=== PATIENT | female | born 1985 | race Caucasian/White ===

== ENCOUNTER 2020-09-09 15:46 | Emergency (ER) | payer SELFPAY ==
[2020-09-09 15:48] VITALS: BMI 37.1
--- NOTE | 2020-09-09 16:09 | ED_ITS ---
HPI - Back Pain/Injury General: Chief Complaint: Back Pain/Injury Stated Complaint: LOWER BACK PAIN Time Seen by Provider: 09/09/20 15:47 Source: patient Mode of arrival: ambulatory Limitations: no limitations History of Present Illness: HPI Narrative: 34-year-old female comes in today with low back pain. Patient states that yesterday she had sneezed and coughed and with that felt a strain in her back. Patient reports that his progressively worsened throughout the day and night. Patient upon awakening today could barely get up off the toilet. Patient had taken some baclofen and laid down on the floor to counter stretch out her back but was unable to get back up off the floor and called for EMS. Patient was brought into the emergency room. Patient was given 100 mcg of fentanyl with minimal relief for pain. Patient appears well. Patient denies any fever. Patient denies any change in bowel or bladder. MD elicited complaint: back pain Review of Systems General: Reports: 10 or more systems reviewed and unremarkable except in HPI and below Musc: Reports: back pain Physical Exam Const: COMMON NORMALS: no acute distress and patient oriented x3 GENERAL APPEARANCE: cooperative HENMT: COMMON NORMALS: normocephalic and Normal external nose present HEAD & SCALP: normal to inspection and normocephalic NOSE: Normal external nose present MOUTH: Normal oral and palatal mucosa present Eye: GENERAL EYE: appearance normal, both eyes and all related structures Neck/C-Spine: COMMON NORMALS: full ROM Chest: COMMONS NORMALS: normal inspection of the chest Resp: COMMON NORMALS: normal respiratory effort EFFORT & INSPECTION: Yes able to speak in complete sentences Cardio: COMMON NORMALS: regular rate and regular rhythm RATE: regular rate RHYTHM: regular rhythm GI: COMMON NORMALS: non-tender Back/Pelvis: LUMBAR SPINE/LOWER BACK: Yes paraspinal muscle tenderness Extremity: COMMON NORMALS: normal to inspection Neuro: COMMON NORMALS: patient oriented x3 and moves all extremities Psych: COMMON NORMALS: mental status grossly normal and cooperative Skin: COMMON NORMALS: no rashes or lesions noted GENERAL SKIN EXAM: no rashes or lesions noted MDM - Back Pain/Injury MDM Narrative: Medical decision making narrative: Patient comes in today with complaints of low back pain after straining yesterday. Patient reports worsening low back pain. Skin was warm and dry. Respirations were even lungs were clear to auscultation. Patient had muscle spasms in the low back. Patient has some tenderness of the vertebra along L5-S1. Differential diagnosis includes but not limited to lumbar strain, intervertebral disc disease, facet arthropathy. Patient had no signs of cauda equina. Patient denied any problems with bowel or bladder habits. Patient had no fever. Reviewed exam with patient with recommendations for treatment and follow-up. Patient reported understanding. Discharge Plan Discharge Patient Disposition: Home Clinical Impression: Strain of lumbar region Qualifiers: Encounter type: initial encounter Qualified Code(s): S39.012A - Strain of muscle, fascia and tendon of lower back, initial encounter Condition: Stable Prescriptions: New naproxen 500 mg tablet 500 mg PO BID Qty: 20 RF: 0 tizanidine 4 mg tablet 4 mg PO Q6H PRN (Reason: muscle spasticity) Qty: 20 RF: 0 [place] 5-325 mg tablet 1 tab PO Q6H PRN (Reason: pain) Qty: 10 RF: 0 Discharge Orders: Discharge ED (Routine); Ordered 09/09/20 Ordered By: Pancho Burden Referrals: Paola Rogers FNP [Referring] - Discharge Diet: Usual diet Discharge Activity: Increase activity as tolerated Patient Instructions: Low Back Strain (ED) Activity Restrictions/Additional Instructions: Activity as tolerated. Follow-up with primary care for further treatment. 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
[2020-09-09] MEDS: ketorolac 30 mg/mL INJ 15 MG IVP (16:27)
[2020-09-09] MEDS: orphenadrine 30 mg/mL Inj 2 mL 60 MG IVP (16:27)
[2020-09-09] MEDS: dexamethasone 4 mg/mL INJ 8 MG IVP (16:30)
[2020-09-09] MEDS: morphine 4 mg/mL SDV 1 mL IM (16:58)
[2020-09-09] MEDS: morphine 4 mg/mL SDV 1 mL IVP (18:18)
[2020-09-09 18:23] VITALS: BP 130/90; PULSE 109; RESP 14; O2SAT 96
== END 2020-09-09 18:24 | disposition home or self-care (01) ==
LOC: ER 16:47
PROVIDERS: Emergency Provider Nurse Practitioner Family
DX: S39.012A Strain of muscle, fascia and tendon of lower back, initial encounter (principal); X50.9XXA Other and unspecified overexertion or strenuous movements or postures, initial encounter
CPT/HCPCS: 12345; 96372; 96374; 96375; 99282; 99283; J1100; J1885; J2270; J2360

== ENCOUNTER 2022-05-10 13:36 | Emergency (ER) | payer SELFPAY ==
[2022-05-10 13:42] VITALS: BMI 38.7
--- NOTE | 2022-05-10 13:53 | ED_ITS ---
HPI - Back Pain/Injury General: Chief Complaint: Back Pain/Injury Stated Complaint: Back pain at the gym Time Seen by Provider: 05/10/22 13:48 Source: patient Mode of arrival: ambulatory Limitations: no limitations History of Present Illness: Patient is a 36-year-old female who presents to ED today with a complaint of lower back pain that began immediately after she was at the gym lifting. She states pain is across to her lower back and radiates around into her hips and abdomen. She states pain is not radiating into her legs. States she has a history of previous back pains and had a similar inc ident about a year ago. She has not had any episodes of bowel incontinence. No obvious urinary retention but again symptoms just started 1-2 hours ago. MD elicited complaint: back pain Pertinent past history: prior back pain Onset (ago): hour(s) Timing: constant Severity: severe Pain scale (0-10): 10 Similar Symptoms Previously: Yes Quality: burning Location: lumbar spine, right lower back and left lower back Radiation: abdomen Exacerbating factors: movement, walking and lifting Relieving factors: none Context: while lifting Associated symptoms: Deny abdominal pain, chills, dysuria, fatigue, fever(s) or hematuria Work related injury: No Review of Systems Const: Denies: fever(s), chills, body aches, fatigue or malaise Card: Denies: chest pain Resp: Denies: dyspnea GI: Denies: abdominal pain : Denies: flank pain, dysuria or hematuria Musc: Reports: back pain; Denies: neck pain, extremity pain, extremity swelling, joint pain, joint swelling, joint redness or joint warmth Skin/Breast: Denies: rash Neuro: Denies: headache(s), numbness in extremities, weakness in extremities or sensory changes Physical Exam Const: COMMON NORMALS: patient oriented x3, no limitations and alert GENERAL APPEARANCE: cooperative and in distress (pt appears extremity uncomfortable secondary to pain) NUTRITIONAL APPEARANCE: overweight ADAM ENTATION/CONSCIOUSNESS: Yes awake, Yes oriented to person, Yes oriented to place and Yes oriented to time Resp: COMMON NORMALS: normal respiratory effort and clear to auscultation bilaterally AUSCULTATION: clear to auscultation bilaterally Cardio: COMMON NORMALS: regular rate and regular rhythm RATE: regular rate RHYTHM: regular rhythm GI: COMMON NORMALS: Normal to inspection, nondistended, normoactive bowel sounds present, Soft to palpation, non-tender, No hepatosplenomegaly present and no masses PALPATION: Yes Soft to palpation and Yes No hepatosplenomegaly present Back/Pelvis: THORACIC SPINE/UPPER BACK: Yes normal to inspection, No thoracic spinal tenderness, No paraspinal muscle tenderness and No paraspinal muscle spasm LUMBAR SPINE/LOWER BACK: Yes ROM limited, Yes pain with ROM, Yes lumbar spinal tenderness, Yes paraspinal muscle tenderness, No paraspinal muscle spasm, Yes straight leg raise positive right and Yes straight leg raise positive left PELVIS: Yes buttocks normal SACRUM: no tenderness COCCYX: no tenderness Extremity: COMMON NORMALS: normal to inspection, capillary refill normal, no clubbing, cyanosis or edema, no calf tenderness and no pedal edema GENERAL: Yes normal exam except as noted Neuro: COMMON NORMALS: patient oriented x3, moves all extremities, no focal motor deficits and no sensory deficits noted SENSORIUM/ORIENTATION: Yes alert, Yes oriented to person, Yes oriented to place and Yes oriented to time MOTOR EXAM: 5/5 motor strength present throughout Skin: COMMON NORMALS: no rashes or lesions noted GENERAL SKIN EXAM: no rashes or lesions noted Course Vital Signs: Vital signs: Vital Signs Respiratory Rate 18 05/10/22 15:49 Pulse Oximetry 98 05/10/22 15:49 MDM - Back Pain/Injury Medical Decision Making Patient has no acute neurologic deficits on her physical exam. Pain began immediately after lifting 25 pounds while at the gym. I do not see any indication for emergent imaging at this time as it is unlikely to change overall management. Pain was incredibly difficult to treat here but eventually patient was able to get out of the wheelchair and ambulate with the help of a walker. She feels comfortable going home at this time. Recommend follow up with PCP within a week for re-evaluation. Discharge Plan Discharge Patient Disposition: Home Clinical Impression: Strain of lumbar region Condition: Stable Prescriptions: New hydrocodone-acetaminophen 5-325 mg tablet 1 tab PO Q6H PRN (Reason: pain) Qty: 14 0RF ibuprofen 800 mg tablet 800 mg PO Q8H PRN (Reason: pain) Qty: 20 0RF methocarbamol 500 mg tablet 1,000 mg PO Q8H Qty: 30 0RF prednisone 10 mg tablet 60 mg PO DAILY 5 Days Qty: 30 0RF Discharge Orders: Discharge ED (Routine); Ordered 05/10/22 Ordered By: Palma García Patient Instructions: Low Back Strain (ED), Acute Low Back Pain (ED), Lumbar Radiculopathy (ED), Opioid Safety Coding Level of Care Code ED Rn Case Manager [facility] Exam Comprehensive
[2022-05-10] MEDS: orphenadrine 30 mg/mL Inj 2 mL 60 MG IV (14:22)
[2022-05-10] MEDS: dexamethasone 10 mg/mL INJ 8 MG IVP (14:22)
[2022-05-10] MEDS: ketorolac 60 mg/2 mL INJ 30 MG IVP (14:22)
[2022-05-10 14:23] VITALS: RESP 24; O2SAT 100
[2022-05-10] MEDS: morphine 4 mg/mL SDV 1 mL IVP (14:23)
[2022-05-10 14:55] VITALS: RESP 18; O2SAT 100
[2022-05-10] MEDS: HYDROmorphone 1 mg/mL INJ 1 mL 0.5 MG IVP (14:55)
[2022-05-10 15:49] VITALS: RESP 18; O2SAT 98
[2022-05-10] MEDS: fentaNYL 50 mcg/mL INJ 2mL IVP ×2 (15:49→16:31)
[2022-05-10 16:31] VITALS: RESP 18; O2SAT 98
== END 2022-05-10 16:50 | disposition home or self-care (01) ==
PROVIDERS: Emergency Provider Physician Assistant
DX: S39.012A Strain of muscle, fascia and tendon of lower back, initial encounter (principal); X50.0XXA Overexertion from strenuous movement or load, initial encounter
CPT/HCPCS: 96374; 96375; 96376; 99284; J1100; J1170; J1885; J2270; J2360; J3010

== ENCOUNTER 2022-05-18 14:05 | Outpatient (CLI) | payer OTHER, SELFPAY ==
--- NOTE | 2022-05-18 14:44 | XRR_ITS ---
PROCEDURE INFORMATION: Exam: XR Lumbosacral Spine Exam date and time: 05/18/2022 3:02 PM Age: 36 years old Clinical indication: Pain and injury or trauma; Sprain or strain, lumbar ligaments; Low back pain; Patient HX: Low back injury while at the gym doing squats with kettlebell. Pain radiates anterior bi-lat femurs, burning sensation; Additional info: Lumbar strain, sequela/lumbar pain w/radiation down R leg TECHNIQUE: Imaging protocol: Radiologic exam of the lumbosacral spine. Views: 3 views. Other technique: AP, lateral and spot lateral views of the lumbar spine are submitted. COMPARISON: CT abdomen pelvis w con* [id number] 09/08/2018 11:25 AM FINDINGS: Bones/joints: Moderate posterior L5-S1 disc height loss redemonstrated. No fracture. No malalignment. Soft tissues: Unremarkable. XR/XR lumbar spine 2-3V* [id number] IMPRESSION: 1. Degenerative changes as above. 2. No acute lumbar spinal bony injury identified.
== END 2022-05-18 14:06 | disposition home or self-care (01) ==
LOC: RAD 14:10
PROVIDERS: Visit Provider Registered Nurse
DX: S39.012A Strain of muscle, fascia and tendon of lower back, initial encounter (principal); X58.XXXA Exposure to other specified factors, initial encounter
CPT/HCPCS: 72100

== ENCOUNTER → 2022-11-09 09:48 | Outpatient (BNVA) | payer OTHER, SELFPAY | PROVIDERS: PCP Registered Nurse; Visit Provider Family Medicine | DX: Z34.90 Encounter for supervision of normal pregnancy, unspecified, unspecified trimester (principal); Z20.828 Contact with and (suspected) exposure to other viral communicable diseases; Z34.80 Encounter for supervision of other normal pregnancy, unspecified trimester; F41.9 Anxiety disorder, unspecified; R30.0 Dysuria | CPT/HCPCS: 80307; 81000; 81025; 84144; 84443; 84702; 85025; 86592; 86695; 86696; 86762; 86803; 86850; 86900; 87077; 87086; 87184; 87340; 87491; 87591; 87624; 87806 ==

== ENCOUNTER 2022-12-07 12:34 | Outpatient (CLI) | payer OTHER, SELFPAY ==
--- NOTE | 2022-12-07 12:50 | US_ITS ---
WS: [id number] EARLY OBSTETRICAL ULTRASOUND (<14 WEEKS). HISTORY: Dating US - Unsure LMP COMPARISON: None available. Single intrauterine gestational sac is identified. Cardiac activity at 180 BPM. [place]-rump length julia sures 4.2 cm which corresponds to a gestation of 11w0d. Normal-appearing yolk sac and amnion demonstr ated. Small subchorionic hemorrhage. Small subchorionic hemorrhage measures 1.6 x 0.8 x 1.7 cm along the RIGHT gestational sac. No free fluid. Coarsened luteum cyst RIGHT ovary. US/US OB <= 14 weeks fetus [id number] IMPRESSION: 1. Single intrauterine gestation of 11 weeks 0 days and EDC of 06/28/2023. 2. Normal cardiac activity. 3. Very small subchorionic hemorrhage.
== END 2022-12-07 12:35 | disposition home or self-care (01) ==
PROVIDERS: PCP Registered Nurse; Visit Provider Family Medicine
DX: Z36.87 Encounter for antenatal screening for uncertain dates (principal); Z3A.11 11 weeks gestation of pregnancy; O46.91 Antepartum hemorrhage, unspecified, first trimester
CPT/HCPCS: 76801; 80307; 81000; 81025; 84144; 84443; 84702; 85025; 86592; 86695; 86696; 86762; 86803; 86850; 86900; 87086; 87340; 87491; 87591; 87624; 87806

== ENCOUNTER → 2022-12-08 10:17 | Outpatient (BNVA) | payer OTHER, SELFPAY | PROVIDERS: PCP Registered Nurse; Visit Provider Family Medicine | DX: Z34.80 Encounter for supervision of other normal pregnancy, unspecified trimester (principal); R30.0 Dysuria | CPT/HCPCS: 87086 ==

== ENCOUNTER → 2023-01-13 10:47 | Outpatient (BNVA) | payer OTHER, SELFPAY | PROVIDERS: PCP Registered Nurse; Visit Provider Family Medicine | DX: Z34.80 Encounter for supervision of other normal pregnancy, unspecified trimester (principal) | CPT/HCPCS: 81511 ==

== ENCOUNTER 2023-02-08 13:31 | Outpatient (CLI) | payer OTHER, MEDICAID, SELFPAY ==
--- NOTE | 2023-02-08 14:15 | US_ITS ---
WS: [id number] ULTRASOUND OB COMPLETE TECHNIQUE: Complete ultrasound. CLINICAL INFORMATION: Anatomy US - 4-5 weeks from now COMPARISON: December 07, 2022 FINDINGS: Cervix is long and closed measuring 4.3 cm Single interuterine gestation is identified with vertex presentation. Placenta is anterior. Placenta grade 0. Normal amniotic fluid volume. cardiac activity: 153 BPM. AGA: 19w4d DARIN by ultrasound: 07/01/2023 Based on GA: No Available percentile Estimated weight: 304 g; BDP: 4.4 cm = 19w2d HC: 17.0 cm = 19w4d AC: 14.4 cm = 19w5d FEMUR LENGTH: 3.1 cm = 19w4d Anatomic survey: profile and four-chamber heart views not well visualized Anatomic survey is otherwise normal. Normal stomach. Kidneys and bladder are normal. Normal 3 vessel cord. Normal 3 vessel cord insertion. Normal spine. Intracranial contents are normal. Normal posterio r fossa and cisterna magna. US/US OB >= 14 weeks fetus [id number] IMPRESSION: 1. Single intrauterine with visualized cardiac activity. AGA 19w4d w ith DARIN 07/01/2023. 2. Placenta is anterior fundal. No evidence of abruption or previa. 3. profile and four-chamber heart views not well visualized. Recommend i nterval follow-up for additional attempt. 4. anatomic survey is otherwise normal. 5. Normal amniotic fluid volume.
== END 2023-02-08 13:32 | disposition home or self-care (01) ==
PROVIDERS: PCP Registered Nurse; Visit Provider Family Medicine
DX: Z34.80 Encounter for supervision of other normal pregnancy, unspecified trimester (principal)
CPT/HCPCS: 76805; 81511

== ENCOUNTER 2023-02-25 12:50 | Outpatient (CLI) | payer OTHER, MEDICAID, SELFPAY ==
--- NOTE | 2023-02-25 14:15 | US_ITS ---
WS: [id number] ULTRASOUND OB FOCUSED HISTORY: Follow up on heart and profile. COMPARISON: 02/08/2023 Single intrauterine gestation in cephalic presentation. Normal four-chamber heart. Still limited eval uation of the outflow tracts. Very short segments of the outflow tracts are identified. heart rate at 147 BPM. Nonvisualization of the profile due to position of the fetus. US/US OB limited [id number] IMPRESSION: 1. Normal four-chamber heart. 2. Continued poor visualization of the outflow tracts and nonvisualization of the profile.
== END 2023-02-25 12:51 | disposition home or self-care (01) ==
LOC: RAD 12:53
PROVIDERS: PCP Registered Nurse; Visit Provider Family Medicine
DX: Z34.80 Encounter for supervision of other normal pregnancy, unspecified trimester (principal)
CPT/HCPCS: 76815

== ENCOUNTER 2023-03-16 20:05 | Outpatient (CLI) | payer OTHER, MEDICAID, SELFPAY ==
[2023-03-16] VITALS (17 sets, daily range): BP systolic 126–146; BP diastolic 64–87; PULSE 86–122; RESP 16; O2SAT 86–99
[2023-03-16 22:09] LABS: Basophils % 0.2 %; Eosinophils # 0.1 10^3/uL (0.0-0.8); Eosinophils % 1.1 %; Hematocrit 35.7 % (37.0-47.0); Hemoglobin 11.9 g/dL (11.5-15.3); Lymphocytes # 1.8 10^3/uL (0.8-4.8); Lymphocytes % 18.6 %; Mean Corpuscular HGB Conc 33.3 g/dL (30.0-36.0); Mean Corpuscular Hemoglobin 28.7 pg (28.0-34.0); Mean Corpuscular Volume 86.2 fl (81-99); Mean Platelet Volume 10.8 fL (7.4-10.4); Monocytes # 0.4 10^3/uL (0.2-0.9); Monocytes % 4.6 %; Neutrophils # 7.08 10^3/uL (1.8-7.7); Neutrophils % 75.1 %; Nucleated Red Blood Cells % 0 %; Platelet Count 163 10^3/cmm (130-400); Red Blood Count 4.14 10^6/uL (4.1-5.3); Red Cell Distribution Width 13.5 % (12.1-15.1); White Blood Count 9.4 10^3/uL (4.0-10.0)
[2023-03-16 22:18] LABS: Add Urine Culture? No; Bacteria Urine TRACE /hpf; Bilirubin Urine Neg (Negative); Blood Urine Neg (Negative); Glucose Urine UA Norm (Normal); Ketones Urine Negative (Negative); Leukocyte Esterase Urine Negative (Negative); Mucus Urine 2+ /hpf; Nitrate Urine Negative (Negative); Protein Urine Neg (Negative); Squamous Epithelial Cell Urine 0-4 /hpf (0-5); Urine Appearance Clear (CLEAR); Urine Color Yellow (Yellow); Urobilinogen Urine Neg (Negative); pH Urine 5 (5-7)
[2023-03-16 22:31] LABS: Alanine Aminotransferase 19 U/L (0-33); Albumin Level 3.4 g/dL (3.5-5.2); Alkaline Phosphatase 114 U/L (35-105); Aspartate Amino Transferase 19 U/L (0-32); Blood Urea Nitrogen 9 mg/dL (6-20); Calcium 8.8 mg/dL (8.5-10.5); Carbon Dioxide 23 mmol/L (22-29); Chloride 106 mmol/L (98-107); Glomerular Filtration Rate 113.8 mL/min (90-130); Glucose 94 mg/dL (65-115); Osmolality Calculated 284 mOsm/kg (285-295); Sodium 138 mmol/L (136-145); Total Bilirubin 0.2 mg/dL (0.15-1.2); Total Protein 6.4 g/dL (6.6-8.7); Uric Acid 4.1 mg/dL (2.4-5.7)
[2023-03-16 22:32] LABS: Urine Creatinine 133 mg/dL (28-217); Urine Protein Random 10 mg/dL
[2023-03-16 22:33] LABS: UPRO/UCREAT Ratio 0.08 mg/mg CR
== END 2023-03-16 23:22 | disposition home or self-care (01) ==
LOC: OPOB 20:09 → OBGYN 20:10
PROVIDERS: PCP Registered Nurse; Visit Provider Family Medicine
DX: O26.899 Other specified pregnancy related conditions, unspecified trimester (principal); R53.1 Weakness; Z3A.00 Weeks of gestation of pregnancy not specified; R61 Generalized hyperhidrosis
CPT/HCPCS: 36415; 80053; 81001; 82570; 84156; 84550; 85025; 99211

== ENCOUNTER 2023-03-23 06:25 | Outpatient (CLI) | payer OTHER, MEDICAID, SELFPAY ==
--- NOTE | 2023-03-23 06:00 | USCV_ITS ---
Shazia Andrade Age: 37 Gender: F : 1985 Exam Date: 03/23/2023 06:43 Ordering Phys: Fermín Hernandez MD Technologist: Exam Location: [facility] [place] Indication: mitral regurg BP: 140 / 80 HR: 88 Rhythm: Sinus Technical Quality: Suboptimal MEASUREMENTS (Male / Female) Normal Values 2D ECHO LV Diastolic Diameter PLAX 4.8 cm 4.2 - 5.9 / 3.9 - 5.3 cm LV Systolic Diameter PLAX 2.8 cm IVS Diastolic Thickness 0.8 cm 0.6 - 1.0 / 0.6 - 0.9 cm IVS Systolic Thickness 1.3 cm LVPW Diastolic Thickness 1.4 cm 0.6 - 1.0 / 0.6 - 0.9 cm LVPW Systolic Thickness 1.3 cm LVOT Diameter 2.0 cm LV Ejection Fraction 2D Teich 70.8 % LV Ejection Fraction MOD 2C 56.8 % LV Ejection Fraction 2C AL 58.0 % LA Diameter 4.3 cm IVC Diameter 1.5 cm M-MODE Aortic Annulus Diameter 3.1 cm LA Ao Ratio MM 1.2 MV E Point Septal Separation 1.5 cm DOPPLER AV Peak Velocity 155.0 cm/s LVOT Peak Velocity 84.0 cm/s AV Area Cont Eq vti 1.8 cm squared AV Area Cont Eq pk 1.7 cm squared MV Area PHT 5.0 cm squared Mitral E to A Ratio 1.7 MV E' Velocity 48.0 cm/s Mitral E to MV E' Ratio 5.7 Mitral E to LV E' Lateral Ratio 5.2 Mitral E to LV E' Septal Ratio 6.4 TR Peak Velocity 161.3 cm/s TR Peak Gradient 10.4 mmHg TV Peak E Velocity 104.0 cm/s Right Atrial Pressure 3.0 mmHg Pulmonary Artery Systolic Pressu 13.4 mmHg RV Acceleration Time 0.1 s FINDINGS Left Ventricle Normal left ventricular size, systolic function and wall thickness, with no regional wall motion abnormalities. Normal left ventricular wall thickness. Normal diastolic filling pattern. Left ventricular ejection fraction is estimated at 60 %. Right Ventricle The right ventricle is normal in size and function. Normal right ventricular systolic pressure. Right Atrium The right atrium is normal in size. Left Atrium Mildly increased left atrial size. Mitral Valve Structurally normal mitral valve. Trace mitral valve regurgitation. Aortic Valve Structurally normal aortic valve without significant sclerosis or stenosis. There is no aortic regurgitation. Tricuspid Valve Structurally normal tricuspid valve. Trace tricuspid valve regurgitation. Pulmonic Valve Pulmonic valve not well visualized. Pericardium Normal pericardium without effusion. Aorta Normal ascending aorta dimension. IVC The inferior vena cava appears normal. CONCLUSIONS Normal left ventricular size, systolic function and wall thickness, with no regional wall motion abnormalities. Normal left ventricular wall thickness. Normal diastolic filling pattern. Left ventricular ejection fraction is estimated at 60 %. Mildly increased left atrial size. Structurally normal mitral valve. Trace mitral valve regurgitation. There are no prior echocardiogram studies to compare. Dr. Mahesh Aguirre MD (Electronically Signed) Final Date: 23 March 2023 15:03 S
== END 2023-03-23 06:26 | disposition home or self-care (01) ==
LOC: RAD 06:26
PROVIDERS: PCP Registered Nurse; Visit Provider Family Medicine
DX: I34.0 Nonrheumatic mitral (valve) insufficiency (principal); R42 Dizziness and giddiness
CPT/HCPCS: 93306

== ENCOUNTER → 2023-03-31 15:21 | Outpatient (BNVA) | payer OTHER, MEDICAID, SELFPAY | PROVIDERS: PCP Registered Nurse; Visit Provider Family Medicine | DX: R35.0 Frequency of micturition (principal); Z34.80 Encounter for supervision of other normal pregnancy, unspecified trimester | CPT/HCPCS: 81000; 82950; 87086 ==

== ENCOUNTER 2023-05-02 07:41 | Outpatient (CLI) | payer OTHER, MEDICAID, SELFPAY ==
--- NOTE | 2023-05-02 07:45 | USR_ITS ---
PROCEDURE INFORMATION: Exam: US , Limited Exam date and time: 05/02/2023 7:58 AM Age: 37 years old Clinical indication: Screening exam; Routine US, uterus; Additional info: Cardiac outflow tracts, profile - 2 months from now, schedule 2 months out LABS AND CLINICAL REPORTS: Last menstrual period start date: 09/26/2022 Gestational age (Established): 31 w 1 d Estimated due date (Established): 07/03/2023 TECHNIQUE: Imaging protocol: Real-time ultrasound of the maternal uterus with image documentation. Exam focused on the clinical indication. COMPARISON: OB limited [id number] 02/25/2023 1:28 PM FINDINGS: Gestation: Single live intrauterine gestation. heart rate: 133 bpm. presentation: Cephalic presentation. Placenta: The placenta is anterior grade 1. ANATOMY: upper lip and nose: facial profile is incompletely visualized. Nasal bone is normal. heart four-chamber view, heart size and position: Four-chamber heart is demonstrated. Left-sided cardiac apex. right ventricular outflow tract: Right ventricular outflow tract is visible in the axial plane. left ventricular outflow tract: Left ventricular outflow tract is visible in the sagittal plane and partially visualized in the axial plane. MATERNAL: Cervix: Cervical length measures 3.6 cm. The cervix is closed. Urinary bladder: The maternal bladder is decompressed. / OB limited [id number] IMPRESSION: 1. Single live intrauterine gestation. 2. Normal four-chamber heart with left cardiac apex. 3. Left and right ventricular outflow tracts are visible in separate planes. Relationship of the right to the left ventricular outflow tract is poorly evaluated. Recommend continuous cine images through the heart oriented in the axial and sagittal plane relative to the fetus.
== END 2023-05-02 07:42 | disposition home or self-care (01) ==
PROVIDERS: PCP Registered Nurse; Visit Provider Family Medicine
DX: Z34.80 Encounter for supervision of other normal pregnancy, unspecified trimester (principal)
CPT/HCPCS: 76815

== ENCOUNTER → 2023-05-03 09:33 | Outpatient (BNVA) | payer OTHER, MEDICAID, SELFPAY | PROVIDERS: PCP Registered Nurse; Visit Provider Family Medicine | DX: Z51.81 Encounter for therapeutic drug level monitoring (principal) | CPT/HCPCS: 85025 ==

== ENCOUNTER 2023-05-19 07:47 | Outpatient (CLI) | payer OTHER, MEDICAID, SELFPAY ==
--- NOTE | 2023-05-19 08:15 | US_ITS ---
WS: [id number] ULTRASOUND OB FOCUSED HISTORY: Outflow tracts and profile - next 2 weeks if possible COMPARISON: 05/02/2023 Single intrauterine gestation is identified in breech presentation. Normal amount of amniotic fluid heart rate at 153 BPM. Persistent difficulty obtaining the LEFT ventricular outflow tract. During the examination the atria both appear larger than expected. Pulmonary artery appears slightly larger than expected also. The fe alicia profile is not visualized due to position. IMPRESSION: 1. Continued difficulty evaluating the heart. The atria appear larger than expected. Poor visualizati on of the LVOT. Recommend follow-up maternal- medicine cardiac evaluation. 2. Nonvisualization of the profile.
== END 2023-05-19 07:48 | disposition home or self-care (01) ==
PROVIDERS: PCP Registered Nurse; Visit Provider Family Medicine
DX: Z34.80 Encounter for supervision of other normal pregnancy, unspecified trimester (principal)
CPT/HCPCS: 76815

== ENCOUNTER 2023-05-27 19:56 | Outpatient (CLI) | payer OTHER, MEDICAID, SELFPAY ==
[2023-05-27 19:56] VITALS: RESP 16; BMI 38.0
[2023-05-27 20:03] VITALS: TEMP 36.3
[2023-05-27 20:24] VITALS: BP 142/93; PULSE 84
[2023-05-27 20:57] VITALS: BP 123/85; PULSE 78
[2023-05-27 21:30] VITALS: BP 127/85; PULSE 78
[2023-05-27 21:31] VITALS: BP 127/85; PULSE 78
== END 2023-05-27 21:35 | disposition home or self-care (01) ==
LOC: OPOB 19:57 → OBGYN 19:57
PROVIDERS: PCP Registered Nurse; Visit Provider Family Medicine
DX: O36.8190 Decreased fetal movements, unspecified trimester, not applicable or unspecified (principal); Z3A.00 Weeks of gestation of pregnancy not specified
CPT/HCPCS: 59025; 99211

== ENCOUNTER → 2023-06-06 10:24 | Outpatient (BNVA) | payer OTHER, MEDICAID, SELFPAY | PROVIDERS: PCP Registered Nurse; Visit Provider Family Medicine | DX: Z34.80 Encounter for supervision of other normal pregnancy, unspecified trimester | CPT/HCPCS: 87081 ==

== ENCOUNTER → 2023-06-16 12:56 | Outpatient (BNVA) | payer OTHER, MEDICAID, SELFPAY | PROVIDERS: PCP Registered Nurse; Visit Provider Family Medicine | DX: Z51.81 Encounter for therapeutic drug level monitoring (principal); R03.0 Elevated blood-pressure reading, without diagnosis of hypertension; Z34.80 Encounter for supervision of other normal pregnancy, unspecified trimester; F41.9 Anxiety disorder, unspecified | CPT/HCPCS: 80053; 82570; 84156; 84550; 85025 ==

== ENCOUNTER 2023-06-19 12:17 | Outpatient (CLI) | payer OTHER, MEDICAID, SELFPAY ==
[2023-06-19 13:30] LABS: Urine Total Protein 28.2 mg/dL (0-150)
[2023-06-19 13:34] LABS: Total Volume, Urine 2225 mL; Urine Total Protein 24 Hour 627.5 mg/24hr (0-150)
== END 2023-06-19 12:18 | disposition home or self-care (01) ==
PROVIDERS: PCP Registered Nurse; Visit Provider Family Medicine
DX: O99.891 Other specified diseases and conditions complicating pregnancy (principal); R03.0 Elevated blood-pressure reading, without diagnosis of hypertension; Z3A.00 Weeks of gestation of pregnancy not specified
CPT/HCPCS: 84156

== ENCOUNTER 2023-06-20 04:55 | Inpatient (IN) | payer OTHER, MEDICAID, SELFPAY ==
--- NOTE | 2023-05-27 10:45 | ANES.PREANE2 ---
Pre-Anesthetic Assessment Height/Weight: Height 1.68 m Operation Date: 06/30/23 07:20 Proposed Procedures p Section 03039,O34.219(Not Applicable) - Fermín Hernandez MD Familial anesthetic complications: none Was Beta Lio taken within 24 hours: N/A Was Clonidine taken within 24 hours: N/A Social No alcohol and No tobacco Exam alert, oriented x 3, clear to auscultation bilaterally and regular rate & rhythm Airway Submandibular: within normal limits Cervical ROM: within normal limits Mallampati: Class II Dentition: full Anesthetic Plan ASA status: 2 Anesthesia: Regional (specify below) (SAB) Medications/Allergies Home Medications Medication Instructions Recorded Confirmed Last Taken Type prenat.vits,jaimee,rim-[id number] 1 tab PO DAILY 03/16/23 05/03/23 03/15/23 History sertraline 25 mg tablet See Rx Instructions .Route 04/08/23 05/03/23 Unknown Rx .COMPLEX #30 tabs Allergies Allergy/AdvReac Type Severity Reaction Status Date / Time bupropion [From Wellbutrin] Allergy ALGY-Hives Verified 02/10/23 07:42 Latex, Natural Rubber Allergy ADR-Itching Verified 02/10/23 07:42 [facility] Anesthesia Medical History Hx of supraventricular tachycardia None since 8-9 years old Surgical History Hx of section x 2 - done in 2012 and 2014 Hx of inguinal hernia surgery Right Family History Father Prediabetes Denies family history of Colon cancer Ovarian cancer Diabetes Heart disease Hypercholesteremia Breast cancer Uterine cancer Thyroid disease Stroke Social History Smoking and tobacco status: never smoked Alcohol intake: former Former alcohol use details: Not during - 5-6 per day 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
[2023-06-20] VITALS (38 sets, daily range): BP systolic 109–166; BP diastolic 62–101; PULSE 58–85; RESP 17; TEMP 36–36.7; O2SAT 99–100; BMI 38.4
[2023-06-20 05:47] LABS: Basophils # 0.1 10^3/uL (0.0-0.1); Basophils % 0.8 %; Eosinophils # 0.2 10^3/uL (0.0-0.8); Eosinophils % 1.9 %; Lymphocytes # 3.1 10^3/uL (0.8-4.8); Lymphocytes % 33.9 %; Mean Corpuscular HGB Conc 33.1 g/dL (30-55); Mean Corpuscular Volume 84.3 fl (85-98); Mean Platelet Volume 12.7 fL (7.4-10.4); Monocytes # 0.7 10^3/uL (0.2-0.9); Monocytes % 7.7 %; Neutrophils # 4.99 10^3/uL (1.8-7.7); Neutrophils % 55.4 %; Nucleated Red Blood Cells % 0 %; Platelet Count 143 10^3/cmm (157-399); Red Blood Count 4.15 10^6/uL (3.85-5.65); Red Cell Distribution Width 12.7 % (12.1-15.1)
[2023-06-20 05:51] LABS: Add Urine Microscopic? YES; Bilirubin Urine Neg (Negative); Blood Urine Neg (Negative); Glucose Urine UA Norm (Normal); Ketones Urine Negative (Negative); Leukocyte Esterase Urine Negative (Negative); Nitrate Urine Negative (Negative); Protein Urine 1+ (Negative); Urine Appearance Clear (CLEAR); Urine Color Yellow (Yellow); Urobilinogen Urine Neg (Negative); pH Urine 5 (5-7)
[2023-06-20 06:01] LABS: Add Urine Culture? No; Amorphous Sediment Urine 1+ /hpf; Bacteria Urine TRACE /hpf; Hyaline Casts Urine 0-4 /lpf; Mucus Urine 3+ /hpf; RBC Urine RARE /hpf (0-2); Squamous Epithelial Cell Urine RARE /hpf (0-5); WBC Urine RARE /hpf (0-5)
[2023-06-20 06:04] LABS: Alanine Aminotransferase 16 U/L (0-33); Albumin Level 3.3 g/dL (3.5-5.2); Alkaline Phosphatase 303 U/L (35-105); Anion Gap 14.8 (5-19); Aspartate Amino Transferase 16 U/L (0-32); Blood Urea Nitrogen 16 mg/dL (6-20); Calcium 8.4 mg/dL (8.5-10.5); Carbon Dioxide 20 mmol/L (22-29); Chloride 104 mmol/L (98-107); Globulin 3.1 g/dL (1.3-4.6); Glomerular Filtration Rate 81.6 mL/min (90-130); Glucose 74 mg/dL (65-115); Osmolality Calculated 280 mOsm/kg (285-295); Potassium 3.8 mmol/L (3.5-5.1); Sodium 135 mmol/L (136-145); Total Bilirubin 0.2 mg/dL (0.15-1.2); Total Protein 6.4 g/dL (6.6-8.7); Uric Acid 5.8 mg/dL (2.4-5.7)
[2023-06-20] MEDS: lactated ringers 1,000 ML 999 ML IV (06:20)
--- NOTE | 2023-06-20 06:48 | P.HP_ITS ---
Providers/Chief Complaint Admitting Physician: Fermín Hernandez MD Primary Care Provider: VIOLETTE Rodriguez Chief Complaint: Preeclampsia History of Present Illness Shazia Andrade is a 37 year old @ 38.2 weeks by LMP c/w 11 wk US. Preg c/b h/o C/S x 2, anxiety off of Effexor switching to Sertraline at 36 wks, FOB with fam history of spina bifida, h/o induced thrombocytopenia, h/o placental abruption, h/o mitral valve regurge - mild during , now with preeclampsia with intermittent severe features. The patient presents for a scheduled section after being diagnosed with preeclampsia overnight. The patient was noted to have elevated blood pressures in clinic last week and we did lab work and the 24-hour urine protein came back as 627.5. The patient has been having blood pressures in the 140s to 150s systolic at home and 1 reading at 160 systolic. The patient has been having some intermittent headaches and intermittent flashes of light. No significant nausea or chest pain at this point. The patient denies shortness of breath, vomiting, diarrhea, constipation, dysuria, vaginal bleeding, leakage of fluid. Medications/Allergies Home Medications Medication Instructions Recorded Confirmed Last Taken Type prenat.vits,jaimee,uzy-[id number] 1 tab PO DAILY 03/16/23 06/06/23 05/28/23 History Allergies Allergy/AdvReac Type Severity Reaction Status Date / Time bupropion [From Wellbutrin] Allergy ALGY-Hives Verified 05/28/23 00:08 Latex, Natural Rubber Allergy ADR-Itching Verified 05/28/23 00:08 PFSH Acute PFSH: Medical History Hx of supraventricular tachycardia None since 8-9 years old Surgical History Hx of section x 2 - done in 2012 and 2014 Hx of inguinal hernia surgery Right Family History Father Prediabetes Denies family history of Colon cancer Ovarian cancer Diabetes Heart disease Hypercholesteremia Breast cancer Uterine cancer Thyroid disease Stroke Social History Smoking and tobacco status: never smoked Alcohol intake: former Former alcohol use details: Not during - 5-6 per day 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 Reproductive History: : 3 Vitals/I&O/Wt Last Vital Signs Pulse 83 06/20/23 06:41 Resp 17 06/20/23 04:59 BP 157/100 06/20/23 06:41 O2 Del Method Room Air 06/20/23 05:02 Weight last 48 hrs Weight 238 lb Physical Exam Narrative: General: Alert and oriented x3 Eyes: Pupils equal round and reactive to light and accommodation Mouth: Mucous membranes moist, pharynx non-erythematous Cardiac: Regular rate and rhythm without murmurs Lungs: Clear to auscultation bilaterally without wheezes, crackles or rhonchi Abdomen: Soft, non-tender, fundus consistent with gestational age Extremities: Trace edema in the bilateral lower extremities, deep tendon reflexes are brisk. Data 06/20/23 05:20 06/20/23 05:20 A&P Assessment and plan (1) Supervision of high risk , unspecified, third trimester: The patient has been diagnosed with preeclampsia overnight and she is having intermittent severe features. Due to this we will proceed with a repeat low- transverse section today. I discussed the risk and benefits with the patient and she is in agreement with proceeding with current plan of care. We will plan to start IV magnesium after delivery of the infant. All questions were answered. (2) Preeclampsia: Attestations Medical Necessity Statement*: The patient will be here for greater than 2 midnights due to routine intrapartum and management of labor and delivery with preeclampsia. Coding Level of Care Code Acute Code for Chg Fwd Diagnoses Supervision of high risk , unspecified, third trimester O09.93 Preeclampsia O14.90
[2023-06-20] MEDS: famotidine 20 mg/2 mL INJ IVP (06:57)
[2023-06-20] MEDS: citric acid-sodium citrate 30 mL UDC PO (06:57)
[2023-06-20] MEDS: metoclopramide 5 mg/mL SDV 2 mL 10 MG IVP (06:57)
[2023-06-20] MEDS: ceFAZolin 2,000 MG in sodium chloride 0.9% (plus) 50 ML 100 MG IV (06:57)
--- NOTE | 2023-06-20 08:08 | PC.NURSE ---
patient in OR
[2023-06-20] MEDS: magnesium sulfate premix 4 GM/100 ML PREMIX IV (08:25)
[2023-06-20] MEDS: magnesium sulfate premix 20 GM/500 ML BAG IV ×2 (08:51→18:04)
--- NOTE | 2023-06-20 08:54 | P.OP_ITS ---
Operative Report Date of procedure: June 20, 2023 Pre-op diagnosis: 1. Intrauterine at 38.2 weeks gestation 2. Prior low-transverse section x2 3. Anxiety on sertraline 4. History of -induced thrombocytopenia now with mildly low platelets 5. Preeclampsia with intermittent severe features Post-op diagnosis: 1. Intrauterine status post repeat low-transverse section at 38.2 weeks gestation 2. Prior low-transverse section x2 3. Anxiety on sertraline 4. History of -induced thrombocytopenia now with mildly low platelets 5. Preeclampsia with intermittent severe features 6. Delivery of healthy infant female weighing 5 pounds 7 ounces with Apgars of 8 and 9 Post-op findings: 1. Healthy infant female weighing 5 pounds 7 ounces with Apgars of 8 and 9 2. Intact placenta with central umbilical cord insertion site Procedure done: Repeat low-transverse section Specimens removed/disposition: Placenta discarded Surgeon: Fermín Hernandez MD Estimated blood loss: 400 mL Complications: None Brief History: Shazia Andrade is a 37 year old G4 now P3 status post repeat low transverse section @ 38.2 weeks by LMP c/w 11 wk US. Preg c/b h/o C/S x 2, anxiety off of Effexor and switched to Sertraline at 36 wks, FOB with fam history of spina bifida, h/o induced thrombocytopenia, h/o placental abruption, h/o mitral valve regurge - mild during , now with preeclampsia with intermittent severe features. The patient presented for a scheduled section after being diagnosed with preeclampsia on 06/19/2023. The patient was noted to have elevated blood pressures in clinic last week and we did lab work and the 24-hour urine protein came back as 627.5.? The patient had been having blood pressures in the 140s to 150s systolic at home and 1 reading at 160 systolic.? The patient had been having some intermittent headaches and intermittent flashes of light.? No significant nausea or chest pain. Procedure: After informed consent was obtained, the patient was taken to the operating room and the patient was prepped and draped in a normal sterile fashion in the dorsal supine position.? A spinal was placed and adequate anesthesia was obtained.? At 7:31 AM on 06/20/2023 a Pfannenstiel skin incision was made and carried through to the underlying layer of fascia using a scalpel.? The fascial incision was then extended laterally using curved Mayos.? The fascia was then grasped with Bonita clamps and the underlying rectus muscles were dissected off taking care to avoid injury to the underlying tissues.? The peritoneum was entered bluntly with one digit.? It was then bluntly.? The bladder blade was placed and the vesicouterine peritoneum was well below the lower uterine segment of the uterus.? The uterine incision was made in the lower uterine segment in a transverse fashion with the scalpel at 7:38 AM.? The amniotic membrane was entered bluntly and a small amount of clear fluid was noted.? Uterine pressure was placed and the 's head delivered without complication at 7:39 AM on 06/20/2023.? There was no nuchal cord.? The mouth and nose were suctioned.? The rest of the delivered without difficulty.? The infant took a breath immediately upon delivery.? The cord was clamped and cut and the infant was handed to the awaiting pediatric nurses.? The placenta was then manually expressed.? The uteru s was exteriorized from the abdomen.? A wet lap was used to clear the uterus of clots and debris.? The bladder blade was reinserted and the uterine incision was closed using 0 chromic in a running locking fashion.? The uterus was noted to be firm.? A second layer of the same suture was used in the same manner.? Excellent hemostasis was obtained. Next the posterior cul-de-sac was inspected and was cleared of any blood. The gutters were cleared of any further clots and debris and the uterine incision was again inspected and hemostasis was noted.? The subfascial tissue was inspected for hemostasis and the peritoneum was re-approximated using 2-0 plain in a running fashion.? The fascia was then re-approximated using 0 Vicryl in a running fashion.? The subcutaneous tissue was inspected for hemostasis.? Jose L's fascia was then re-approximated using 3-0 plain in a running fashion.? Good hemostasis was noted.? The subcutaneous tissue was then re-approximated using a subcuticular stitch.? The patient tolerated the procedure well and was recovered in stable condition.? Estimated blood loss was 400 mL. Urine in the Nava catheter was clear. The patient was taken to recovery in good condition.
--- NOTE | 2023-06-20 09:07 | PC.NURSE ---
patient in pacu
[2023-06-20] MEDS: dextrose 5%-lactated ringers 1,000 ML 125 ML IV ×2 (10:08→22:42)
[2023-06-20] MEDS: diphenhydrAMINE 50 mg/mL SDV 1mL 25 MG IVP (10:09)
[2023-06-20] MEDS: ketorolac 30 mg/mL INJ IVP ×2 (13:55→20:21)
[2023-06-20 15:03] LABS: Magnesium Level (OB Only) 4.8 mg/dL (5.0-7.5)
[2023-06-20] MEDS: ferrous sulfate EC 325 mg Tablet PO (20:21)
[2023-06-20] MEDS: docusate sodium 100 mg Capsule PO (20:21)
[2023-06-20 21:30] LABS: Hematocrit 29.4 % (36-47); Mean Corpuscular Hemoglobin 28.4 pg (27-33); Mean Corpuscular Volume 83.5 fl (85-98); Mean Platelet Volume 12.8 fL (7.4-10.4); Platelet Count 116 10^3/cmm (157-399); Red Blood Count 3.52 10^6/uL (3.85-5.65); White Blood Count 8.49 10^3/uL (3.29-11.43)
[2023-06-20 21:33] LABS: Magnesium Level (OB Only) 5.9 mg/dL (5.0-7.5)
[2023-06-20] MEDS: HYDROcodone-acetaminophen 5-325 mg Tablet PO (22:39)
[2023-06-21] VITALS (15 sets, daily range): BP systolic 106–154; BP diastolic 56–87; PULSE 62–82; TEMP 36.4–36.9
[2023-06-21] MEDS: magnesium sulfate premix 20 GM/500 ML BAG IV (04:18)
[2023-06-21] MEDS: ketorolac 30 mg/mL INJ IVP (04:18)
[2023-06-21] MEDS: docusate sodium 100 mg Capsule PO ×2 (07:51→17:52)
[2023-06-21] MEDS: prenatal vitamin Capsule 1 CAP PO (07:51)
[2023-06-21] MEDS: ferrous sulfate EC 325 mg Tablet PO ×2 (07:51→17:52)
[2023-06-21] MEDS: ondansetron 2 mg/ML SDV 2 mL 4 MG IVP (07:51)
--- NOTE | 2023-06-21 08:00 | P.PN_ITS ---
Subjective Subjective: The patient has been doing well overnight and her blood pressures are in a good range. Her urine output is ranging from 40 to 400 mL/h. Her urine output has gradually been improving. The patient does feel some chest heaviness and nausea as the magnesium level increases. Her pain is starting to increase some. Her bleeding is staying low. Vitals/I&O/Wt Last Vital Signs Temp 97.6 F 06/21/23 04:02 Pulse 67 06/21/23 07:11 Resp 17 06/20/23 22:40 BP 125/70 06/21/23 07:11 Pulse Ox 99 06/20/23 09:20 O2 Del Method Room Air 06/21/23 04:02 06/20/23 06/21/23 06/21/23 22:59 06:59 14:59 Intake Total 1520.833 / 1520.833 500 / 2020.833 Output Total 485 / 715 1309 / 2024 Balance 1035.833 / 805.833 -809 / -3.167 Weight last 48 hrs Weight 238 lb Physical Exam Narrative: General: Alert and oriented x3 Cardiac: Regular rate and rhythm without murmurs Lungs: Clear to auscultation bilaterally without wheezes, crackles or rhonchi Abdomen: Soft, mild tenderness over uterus. The uterus is firm and 2 cm below the umbilicus. Incision is clean and dry without signs of infection or dehiscence. There are 2 areas of blistering noted on the lateral edges of the lower abdomen where the tape was present. Clear fluid is noted in the bulla. Extremities: Trace edema in the bilateral lower extremities Urinary Catheter Management: Latex Free: Cath Placed During This Visit: yes Reason for Continuing Indwelling Catheter: Accurate Measurement of Urinary Output in Critically Ill Patients Urinary Catheter Date of Insertion: 06/20/23 Urinary Catheter Time of Insertion: 07:10 Data 06/20/23 20:30 06/20/23 05:20 A&P Assessment and plan (1) Status post section: The patient is doing well overall status post section. She did have some increased bleeding yesterday that improved with down. She is showing no signs of complications with bleeding at this time. The patient does have some signs of blistering likely due to the paper tape adhesive. I will put a prescri ption for triamcinolone to be used as needed for itching. Once we can get her up and moving we will have her shower to help decrease the amount of adhesive on her skin. Overall she is doing well and we will plan to discontinue IV magnesium at 24 hours. (2) Preeclampsia: Attestations Medical Necessity Statement*: The patient we have a greater than 2 midnights due to routine intrapartum and management of labor and delivery. Coding Level of Care Code Acute Code for Chg Fwd Diagnoses Status post section Z98.891 Preeclampsia O14.90
[2023-06-21] MEDS: HYDROcodone-acetaminophen 5-325 mg Tablet PO ×4 (08:51→22:16)
[2023-06-21] MEDS: sertraline 50 mg Tablet 25 MG PO (08:51)
[2023-06-21 09:46] LABS: Magnesium Level (OB Only) 6.7 mg/dL (5.0-7.5)
[2023-06-21] MEDS: ibuprofen 800 mg tablet PO ×2 (15:44→21:18)
[2023-06-21] MEDS: triamcinolone 0.1% cream 15 gm 1 APPLIC TOPICAL (15:49)
--- NOTE | 2023-06-21 22:35 | PC.NURSE ---
This nurse assessed jair sized clot when patient was up to restroom, patient voided 600 ml of urine at this time, 2220. Patient went back to bed and this nurse performed fundal massage. scant bleeding, -2 fundal height, firm, midline.
--- NOTE | 2023-06-21 23:24 | PC.NURSE ---
this nurse observed a passed clot reported by patient at 2315. clot was jair sized and there was no blood loss after fundal massage. fundus noted to be -2, midline and firm
[2023-06-22] MEDS: HYDROcodone-acetaminophen 5-325 mg Tablet PO ×5 (02:25→21:59)
[2023-06-22 04:06] VITALS: BP 102/58; PULSE 68
[2023-06-22] MEDS: sertraline 50 mg Tablet 25 MG PO (08:58)
[2023-06-22] MEDS: ferrous sulfate EC 325 mg Tablet PO ×2 (08:59→17:49)
[2023-06-22] MEDS: prenatal vitamin Capsule 1 CAP PO (08:59)
[2023-06-22] MEDS: docusate sodium 100 mg Capsule PO ×2 (08:59→17:49)
[2023-06-22] MEDS: ibuprofen 800 mg tablet PO ×3 (09:00→21:44)
[2023-06-22] MEDS: triamcinolone 0.1% cream 15 gm 1 APPLIC TOPICAL (09:03)
[2023-06-22 09:05] VITALS: BP 121/69; PULSE 81
--- NOTE | 2023-06-22 15:48 | PM.PN ---
Subjective Subjective: The patient is feeling well at this time. She does have abdominal pain that is controlled with medications. She was finally able to pass gas overnight and has tolerated food by mouth. She does have pain with ambulation. She is able to void. The patient feels that her milk production is still slow. Vitals/I&O/Wt Last Vital Signs Temp 98.4 F 06/21/23 22:17 Pulse 81 06/22/23 09:05 Resp 17 06/20/23 22:40 BP 121/69 06/22/23 09:05 Pulse Ox 99 06/20/23 09:20 O2 Del Method Room Air 06/21/23 04:02 06/22/23 06/22/23 06/22/23 06:59 14:59 22:59 Output Total 1800 / 3700 Balance -1800 / -2973.333 Physical Exam Narrative: General: Alert and oriented x3 Cardiac: Regular rate and rhythm without murmurs Lungs: Clear to auscultation bilaterally without wheezes, crackles or rhonchi Abdomen: Soft, mild tenderness over uterus. The uterus is firm and 2 cm below the umbilicus. Incision is clean and dry without signs of infection or dehiscence. There are 2 areas of blistering noted on the lateral edges of the lower abdomen where the tape was present. Clear fluid is noted in the bulla. Stable compared to yesterday. Extremities: +1 pitting edema in the bilateral lower extremities Urinary Catheter Management: Latex Free: Cath Placed During This Visit: yes, but has since been removed by the nurse Reason for Continuing Indwelling Catheter: Decision to DC Catheter Urinary Catheter Date of Insertion: 06/20/23 Urinary Catheter Time of Insertion: 07:10 Date Urinary Catheter Removed: 06/21/23 Time Urinary Catheter Discontinued: 09:00 Data 06/20/23 20:30 06/20/23 05:20 A&P Assessment and plan (1) Status post section: The patient is doing well overall at this time. Her bleeding is slowing down well currently. She did pass another large clot overnight and her bleeding has improved since. She is to continue to monitor. We will continue to monitor her throughout the day and likely discharge home tomorrow. If she makes good recovery throughout the day, we may consider discharge home. We discussed discharge instructions in case this is possible for her. I did also discuss risk for infection as well as precautions regarding blood loss. All questions were answered. (2) Supervision of high risk , unspecified, third trimester: Attestations Medical Necessity Statement*: The patient continues to need inpatient care and her stay will cross 2 midnights. Coding Level of Care Code Acute Code for Chg Fwd Diagnoses Status post section Z98.891 Supervision of high risk , unspecified, third trimester O09.93
[2023-06-22 16:04] VITALS: BP 128/74; PULSE 65
[2023-06-22 21:45] VITALS: BP 127/76; PULSE 79
[2023-06-22 22:11] VITALS: TEMP 37.1
[2023-06-23 03:50] VITALS: BP 150/81; PULSE 82
[2023-06-23] MEDS: HYDROcodone-acetaminophen 5-325 mg Tablet PO ×2 (03:52→08:56)
[2023-06-23 04:00] VITALS: TEMP 36.6
--- NOTE | 2023-06-23 08:49 | P.DS_ITS ---
Discharge Providers Date of Admission: 06/20/23 04:55 Date of Discharge: June 23, 2023 Attending Provider at Admission: Fermín Hernandez MD Attending Provider at Discharge: Fermín Hernandez MD Primary Care Provider: VIOLETTE Rodriguez Diagnoses at Discharge Discharge Diagnosis (1) Status post section: Status: Inactive (2) Supervision of high risk , unspecified, third trimester: Status: Resolved Other Information Additional DC diagnoses/information: 1.? Intrauterine status post repeat low-transverse section at 38.2 weeks gestation 2.? Prior low-transverse section x2 3.? Anxiety on sertraline 4.? History of -induced thrombocytopenia now with mildly low platelets 5.? Preeclampsia with intermittent severe features 6.? Delivery of healthy infant female weighing 5 pounds 7 ounces with Apgars of 8 and 9 Reason for Visit Reason for Visit: Preeclampsia Brief History: Shazia Andrade is a 37 year old G4 now P3 status post repeat low transverse section @ 38.2 weeks by LMP c/w 11 wk US. Preg c/b C/S x 3 now, anxiety off of Effexor and switched to Sertraline at 36 wks, FOB with fam history of s velazquez bifida, h/o induced thrombocytopenia, h/o placental abruption, h/o mitral valve regurge - mild during , now with preeclampsia with intermittent severe features. Hospital Course Hospital Course The patient presented for a scheduled section after being diagnosed with preeclampsia the night before arrival. The patient was noted to have elevated blood pressures in clinic the week before admission and we did lab work and the 24-hour urine protein came back as 627.5.? The patient had been having blood pressures in the 140s to 150s systolic at home and one reading at 160 systolic.? The patient had been having some intermittent headaches and intermittent flashes of light.? No significant nausea or chest pain. It was decided that the patient needed to proceed with an earlier delivery due to preeclampsia. She was taken back for a repeat low-transverse section. The patient was started on IV magnesium afterwards. The patient did not have any complications with the surgery. Following the surgery later that day, she did have increased bleeding and passed a couple of large clots. She was given TXA, IV Pitocin and Cytotec and this improved. The following day she passed another blood clot. Since then her bleeding has stayed slow. Her hemoglobin did drop to 10.0. The patient is currently feeling well. The patient was on IV magnesium for 24 hours. She is showing signs of improvement and her vital signs are stable. The patient is ambulating, voiding, passing gas and tolerating food by mouth. She does have some weakness with standing, however no significant dizziness. We discussed precautions and to be cautious about hot showers and standing too quickly. We discussed precautions regarding infection in her incision site. We discussed other routine post care precautions. All questions were answered. The patient is in agreement with discharge home at this time. We will follow-up with her next week to be sure that everything is on track. Physical Exam Narrative: General: Alert and oriented x3 Cardiac: Regular rate and rhythm without murmurs Lungs: Clear to auscultation bilaterally without wheezes, crackles or rhonchi Abdomen: Soft, mild tenderness over uterus. The uterus is firm and 2 cm below the umbilicus. Incision is clean and dry without signs of infection or dehiscence. There are 2 areas of blistering noted on the lateral edges of the lower abdomen where the tape was present. Clear fluid is noted in the bulla. Stable compared to yesterday. Extremities: +1 pitting edema in the bilateral lower extremities Urinary Catheter Management: Latex Free: Cath Placed During This Visit: yes, but has since been removed by the nurse Reason for Continuing Indwelling Catheter: Decision to DC Catheter Urinary Catheter Date of Insertion: 06/20/23 Urinary Catheter Time of Insertion: 07:10 Date Urinary Catheter Removed: 06/21/23 Time Urinary Catheter Discontinued: 09:00 Discharge Data Studies Completed and Pending Laboratory Results WBC 8.49 10^3/uL (3.29-11.43) 06/20/23 20:30 RBC 3.52 10^6/uL (3.85-5.65) L 06/20/23 20:30 Hgb 10.00 g/dL (11.27-16.99) L 06/20/23 20:30 Hct 29.4 % (36-47) L 06/20/23 20:30 MCV 83.5 fl (85-98) L 06/20/23 20:30 MCH 28.4 pg (27-33) 06/20/23 20:30 MCHC 34.0 g/dL (30-55) 06/20/23 20:30 RDW 13.0 % (12.1-15.1) 06/20/23 20:30 Plt Count 116 10^3/cmm (157-399) L 06/20/23 20:30 MPV 12.8 fL (7.4-10.4) H 06/20/23 20:30 Neut % (Auto) 55.4 % 06/20/23 05:20 Lymph % (Auto) 33.9 % 06/20/23 05:20 [place] % (Auto) 7.7 % 06/20/23 05:20 Eos % (Auto) 1.9 % 06/20/23 05:20 Baso % (Auto) 0.8 % 06/20/23 05:20 Neut # (Auto) 4.99 10^3/uL (1.8-7.7) 06/20/23 05:20 Lymph # (Auto) 3.1 10^3/uL (0.8-4.8) 06/20/23 05:20 [place] # (Auto) 0.7 10^3/uL (0.2-0.9) 06/20/23 05:20 Eos # (Auto) 0.2 10^3/uL (0.0-0.8) 06/20/23 05:20 Baso # (Auto) 0.1 10^3/uL (0.0-0.1) 06/20/23 05:20 Nucleated RBC % (auto) 0 % 06/20/23 05:20 Nucleated RBCs # 0.0 /100WBC 06/20/23 05:20 Sodium 135 mmol/L (136-145) L 06/20/23 05:20 Potassium 3.8 mmol/L (3.5-5.1) 06/20/23 05:20 Chloride 104 mmol/L (98-107) 06/20/23 05:20 Carbon Dioxide 20 mmol/L (22-29) L 06/20/23 05:20 Anion Gap 14.8 (5-19) 06/20/23 05:20 BUN 16 mg/dL (6-20) 06/20/23 05:20 Creatinine 0.8 mg/dL (0.5-0.9) 06/20/23 05:20 GFR Calculation 81.6 mL/min (90-130) L 06/20/23 05:20 Glucose 74 mg/dL (65-115) 06/20/23 05:20 Calculated Osmolality 280 mOsm/kg (285-295) L 06/20/23 05:20 Uric Acid 5.8 mg/dL (2.4-5.7) H 06/20/23 05:20 Calcium 8.4 mg/dL (8.5-10.5) L 06/20/23 05:20 Magnesium 6.7 mg/dL (5.0-7.5) 06/21/23 09:03 Total Bilirubin 0.2 mg/dL (0.15-1.2) 06/20/23 05:20 AST 16 U/L (0-32) 06/20/23 05:20 ALT 16 U/L (0-33) 06/20/23 05:20 Alkaline Phosphatase 303 U/L (35-105) H 06/20/23 05:20 Total Protein 6.4 g/dL (6.6-8.7) L 06/20/23 05:20 Albumin 3.3 g/dL (3.5-5.2) L 06/20/23 05:20 Globulin 3.1 g/dL (1.3-4.6) 06/20/23 05:20 Urine Color Yellow (Yellow) 06/20/23 05:00 Urine Appearance Clear (CLEAR) 06/20/23 05:00 Urine pH 5 (5-7) 06/20/23 05:00 Ur Specific [place] 1.020 (1.005-1.030) 06/20/23 05:00 Urine Protein 1+ (Negative) H 06/20/23 05:00 Urine Glucose (UA) Norm (Normal) 06/20/23 05:00 Urine Ketones Negative (Negative) 06/20/23 05:00 Urine Blood Neg (Negative) 06/20/23 05:00 Urine Nitrate Negative (Negative) 06/20/23 05:00 Urine Bilirubin Neg (Negative) 06/20/23 05:00 Urine Urobilinogen Neg mg/dL (Negative) 06/20/23 05:00 Ur Leukocyte Esterase Negative (Negative) 06/20/23 05:00 Urine RBC Rare /hpf (0-2) 06/20/23 05:00 Urine WBC Rare /hpf (0-5) 06/20/23 05:00 Ur Squamous Epith Cells Rare /hpf (0-5) 06/20/23 05:00 Amorphous Sediment 1+ /hpf 06/20/23 05:00 Urine Bacteria Trace /hpf (NONE) 06/20/23 05:00 Hyaline Casts 0-4 /lpf H 06/20/23 05:00 Urine Mucus 3+ /hpf 06/20/23 05:00 Blood Type B Positive 06/20/23 05:20 Rho(D) Type Positive 06/20/23 05:20 Antibody Screen Negative 06/20/23 05:20 Vitals Last Vital Signs Temp 97.9 F 06/23/23 04:00 Pulse 82 06/23/23 03:50 Resp 17 06/20/23 22:40 BP 150/81 06/23/23 03:50 Pulse Ox 99 06/20/23 09:20 O2 Del Method Room Air 06/22/23 22:11 Discharge Plan Discharge Patient Disposition: Home Condition: Good Prescriptions: New senna 8.6 mg tablet 8.6 mg PO QID PRN (Reason: constipation) Qty: 30 0RF oxycodone-acetaminophen 5-325 mg tablet 1 tab PO Q6H PRN (Reason: pain) Qty: 30 0RF ibuprofen 800 mg Tablet 800 mg PO TID Qty: 60 0RF ferrous sulfate 325 mg (65 mg iron) Tablet,Delayed Release (Dr/Ec) 325 mg PO BIDWM Qty: 60 0RF sertraline 25 mg tablet 25 mg PO DAILY Qty: 30 0RF -U 106.5-1 mg Capsule 1 cap PO BREAKFAST Qty: 30 6RF Discontinued Adacel(Tdap Adolesn/Adult)(PF) 2 Lf-(2.5-5-3-5 mcg)-5Lf/0.5 mL syringe 0.5 ml IM ONCE Qty: 0.5 0RF prenat.vits,jaimee,uia-cokp-alvcs Tablet 1 tab PO DAILY Discharge Orders: Discharge Order (Routine); Ordered 06/23/23 Ordered By: Fermín Hernandez Referrals: Fermín Hernandez MD [Physician] - 06/29/23 12:20 pm Discharge Diet: Regular Discharge Activity: Limit activity as instructed Patient Instructions: Iron Supplements (By mouth), Ibuprofen (By mouth), Oxycodone/Acetaminophen (By mouth), Senna (By mouth), Depression (DC), Expression, Collection and Storage of Breast Milk (DC), and Nipple Soreness (DC), and Breast Engorgement (DC), and Plugged Ducts (DC), How to Increase Your Milk Supply (DC), Bleeding (DC), Preeclampsia and Eclampsia After Delivery (GEN), Breast Care for the Mother (DC), Hemorrhage (DC), OB Discharge Report, OB Food/Drug Interaction Guide, OB Care at Home, Opioid Safety, OB Your Care - [facility], Abnormal Bleeding Activity Restrictions/Additional Instructions: Do not lift anything heavier than your in the carseat for the first 3 weeks, then gradually increase. Full lifting at 6 weeks. If you have any concern for infection in your incision site, please seek immediate medical attention or contact Dr Hernandez's office. If you have any concerns for increased bleeding, please contact Dr Hernandez. Nothing per vagina for 6 weeks. Discharge Attestations Time Spent in Discharge Care*: greater than 30 min Quality Metrics Clinical Quality Measures [ No reported AMI, CVA or VTE this stay] Coding Level of Care Code Acute Code for Chg Fwd Diagnoses Status post section Z98.891 Supervision of high risk , unspecified, third trimester O09.93
[2023-06-23] MEDS: ibuprofen 800 mg tablet PO (08:55)
[2023-06-23] MEDS: ferrous sulfate EC 325 mg Tablet PO (08:55)
[2023-06-23] MEDS: sertraline 50 mg Tablet 25 MG PO (08:56)
[2023-06-23] MEDS: prenatal vitamin Capsule 1 CAP PO (08:56)
[2023-06-23] MEDS: docusate sodium 100 mg Capsule PO (08:57)
[2023-06-23 09:54] VITALS: BP 138/84; PULSE 75
[2023-06-23 10:30] VITALS: BP 138/84; PULSE 75; RESP 18; TEMP 36.6
== END 2023-06-23 10:30 | disposition home or self-care (01) | DRG 788 ==
PROVIDERS: Admitting Provider Family Medicine; PCP Registered Nurse; Visit Provider Family Medicine
DX: O34.211 Maternal care for low transverse scar from previous cesarean delivery (principal); N85.8 Other specified noninflammatory disorders of uterus; O14.94 Unspecified pre-eclampsia, complicating childbirth; O99.344 Other mental disorders complicating childbirth; F41.9 Anxiety disorder, unspecified; Z3A.38 38 weeks gestation of pregnancy; Z37.0 Single live birth; Z86.2 Personal history of diseases of the blood and blood-forming organs and certain disorders involving the immune mechanism; Z87.59 Personal history of other complications of pregnancy, childbirth and the puerperium; Z86.79 Personal history of other diseases of the circulatory system; Z82.79 Family history of other congenital malformations, deformations and chromosomal abnormalities
CPT/HCPCS: 36415; 51702; 80053; 81001; 83735; 84550; 85025; 85027; 86850; 86900; 96374; 96376; 98960; J0690; J1200; J1885; J2274; J2405; J2765; J3475; J3490; J7120; J7121

== ENCOUNTER 2023-06-20 12:00 | Day surgery (SDC) | payer OTHER, MEDICAID, SELFPAY ==
--- NOTE | 2023-06-20 06:57 | P.ANESUD_ITS ---
Pre-Anesthetic Update Pre-Anesthetic Assessment: Date of Surgery/Procedure: 06/20/23 Preop Jolie gnosis: previous c section Proposed Procedure: Operation Date: 06/20/23 06:50 Proposed Procedures p Section Repeat(Not Applicable) - Fermín Hernandez MD Any changes to Pre-Anesthetic Assessment?: No Last Intake: 22:00 Exam: Pre-Anes Outpt Exam: alert, oriented x 3, clear to auscultation bilaterally and regular rate & rhythm Cardiac Studies: Echocardiogram 03/23/23
--- NOTE | 2023-06-20 16:01 | ANE.PACU2 ---
Inpatient post-anesthesia follow up: Airway intact: Yes Vital signs: Temperature Pulse Rate Respiratory Rate Blood Pressure Pulse Oximetry Oxygen Delivery Me thod Oxygen Flow Rate Fraction of Inspir ed Oxygen Hydration adequate: Yes Nausea and vomiting: No Pain level: 2 Mental status: Baseline
== END 2023-06-20 23:00 | disposition home or self-care (01) ==
LOC: OR 07-21 10:29
PROVIDERS: PCP Registered Nurse; Visit Provider Family Medicine
PROC: (CPT 59514; principal; 2023-06-20 06:30)
DX: Z01.818 Encounter for other preprocedural examination (principal)
CPT/HCPCS: 59409

== ENCOUNTER → 2023-06-30 08:46 | Outpatient (BNVA) | payer OTHER, MEDICAID, SELFPAY | PROVIDERS: PCP Registered Nurse; Visit Provider Family Medicine | DX: R30.0 Dysuria (principal) | CPT/HCPCS: 87077; 87086; 87184 ==

== ENCOUNTER → 2023-10-28 14:15 | Outpatient (BNVA) | payer OTHER, MEDICAID, SELFPAY | PROVIDERS: PCP Registered Nurse; Visit Provider Nurse Practitioner Family | DX: J02.9 Acute pharyngitis, unspecified (principal) | CPT/HCPCS: 87880 ==

== ENCOUNTER → 2024-02-28 14:56 | Outpatient (BNVA) | payer OTHER, MEDICAID, SELFPAY | PROVIDERS: PCP Registered Nurse; Visit Provider Family Medicine | DX: Z34.80 Encounter for supervision of other normal pregnancy, unspecified trimester (principal); R30.0 Dysuria | CPT/HCPCS: 80307; 81000; 81025; 84144; 84156; 84439; 84443; 84702; 85025; 86592; 86695; 86696; 86762; 86803; 86850; 86900; 87086; 87340; 87491; 87591; 87624; 87806 ==

== ENCOUNTER 2024-04-02 06:00 | Outpatient (CLI) | payer OTHER, MEDICAID, SELFPAY ==
--- NOTE | 2024-04-02 06:15 | US_ITS ---
WS: [id number] EARLY OBSTETRICAL ULTRASOUND (<14 WEEKS). HISTORY: Dating US - Next 1-2 weeks if possible COMPARISON: None available. Single intrauterine gestational sac is identified. Cardiac activity at 166 BPM. Bayard-rump length julia sures 6.4 cm which corresponds to a gestation of 12w5d. Normal-appearing yolk sac and amnion demonstr ated. No subchorionic hemorrhage. No free fluid. Normal size ovaries with no mass. RIGHT ovarian cyst measuring 3.0 x 2.6 x 2.6 cm. Normal flow in the adjacent ovary. US/US OB <= 14 weeks fetus [id number] IMPRESSION: 1. Single intrauterine gestation of 12w5d with an EDC of 10/10/2024. 2. Normal cardiac activity. 3. Small RIGHT ovarian cyst.
== END 2024-04-02 06:01 | disposition home or self-care (01) ==
PROVIDERS: PCP Registered Nurse; Visit Provider Family Medicine
DX: Z34.80 Encounter for supervision of other normal pregnancy, unspecified trimester (principal); N83.201 Unspecified ovarian cyst, right side; Z3A.12 12 weeks gestation of pregnancy
CPT/HCPCS: 76801

== ENCOUNTER → 2024-04-04 07:58 | Outpatient (BNVA) | payer OTHER, MEDICAID, SELFPAY | PROVIDERS: PCP Registered Nurse; Visit Provider Family Medicine | DX: R30.0 Dysuria (principal) | CPT/HCPCS: 87086 ==

== ENCOUNTER → 2024-04-05 10:39 | Outpatient (BNVA) | payer OTHER, MEDICAID, SELFPAY | PROVIDERS: PCP Registered Nurse; Visit Provider Family Medicine | DX: R03.0 Elevated blood-pressure reading, without diagnosis of hypertension (principal) | CPT/HCPCS: 84156 ==

== ENCOUNTER → 2024-04-30 10:30 | Outpatient (BNVA) | payer OTHER, MEDICAID, SELFPAY | PROVIDERS: PCP Registered Nurse; Visit Provider Family Medicine | DX: Z34.80 Encounter for supervision of other normal pregnancy, unspecified trimester (principal); Z3A.00 Weeks of gestation of pregnancy not specified | CPT/HCPCS: 81511 ==

== ENCOUNTER 2024-05-30 09:55 | Outpatient (CLI) | payer OTHER, MEDICAID, SELFPAY ==
--- NOTE | 2024-05-30 10:00 | USR_ITS ---
PROCEDURE INFORMATION: Exam: US After First Trimester, Transabdominal Exam date and time: 05/30/2024 10:20 AM Age: 38 years old Clinical indication: Screening exam; Routine US, uterus; Additional info: Anatomy US - about 8 weeks from now LABS AND CLINICAL REPORTS: Gestational age (Established): 20 w 4 d Estimated due date (Established): 10/13/2024 TECHNIQUE: Imaging protocol: Real-time transabdominal obstetrical ultrasound of the maternal pelvis and a second or third trimester with image documentation. COMPARISON: US OB <= 14 weeks fetus [id number] 04/02/2024 6:10 AM FINDINGS: Gestation: Single viable IUP heart rate: 150 bpm presentation and position: Cephalic Placenta: Unremarkable. No subchorionic bleed. Placenta is posterior. Amniotic fluid (Qualitative): Amniotic fluid is normal for gestational age. Amniotic fluid index: AMELIA is 9.94 cm. ANATOMY: midline falx: Normal cerebellum: Normal lateral ventricles: Normal cisterna magna: Normal choroid plexus: Normal face: Upper lip is normal heart four-chamber view, heart size and position: Normal heart right ventricular outflow tract: Limited view heart left ventricular outflow tract: Limited view kidneys: Normal stomach: Normal urinary bladder: Normal spine: Limited view Umbilical cord and insertion: Unremarkable. upper limbs: Normal lower limbs: Normal external genitalia: Normal BIOMETRY: Gestational age (AUA): 20 weeks 1 day Estimated due date (AUA): 10/16/2024 Estimated weight: 385.64 g. EFW by AC, BPD, FL, HC, [place] 1985 Biparietal diameter (BPD): 4.82 cm. EGA (BPD) is 20 w 4 d. 49.6 % percentile Head circumference (HC): 18.02 cm. EGA (HC) is 20 w 3 d. 35.4 % percentile Abdominal circumference (AC): 15.85 cm. EGA (AC) is 21 w 0 d. 57.5 % percentile Femur length (FL): 3.48 cm. EGA (FL) is 21 w 0 d. 55.9 % percentile HC/AC: 1.14. (Normal range: 1.07 - 1.25) FL/HC: 19.31. (Normal range: 16.67 - 19.87) FL/BPD: 72.2 FL/AC: 21.96 MATERNAL: Uterus: Unremarkable. Cervix: Cervical length measures 5.3 cm. Right ovary/adnexa: Obscured by lack of adequate acoustic window. Left ovary/adnexa: Obscured by lack of adequate acoustic window. Intraperitoneal space: No intraperitoneal free fluid. US/US OB >= 14 weeks fetus [id number] IMPRESSION: 1. Viable IUP at 20 weeks 1 day. No worrisome abnormality noted. 2. anatomy exam limited by poor visualization of the spine and heart
== END 2024-05-30 09:56 | disposition home or self-care (01) ==
LOC: RAD 09:55
PROVIDERS: PCP Registered Nurse; Visit Provider Family Medicine
DX: Z34.82 Encounter for supervision of other normal pregnancy, second trimester (principal)
CPT/HCPCS: 76805

== ENCOUNTER 2024-06-29 13:01 | Outpatient (CLI) | payer OTHER, MEDICAID, SELFPAY ==
--- NOTE | 2024-06-29 13:15 | USR_ITS ---
PROCEDURE INFORMATION: Exam: US , Limited Exam date and time: 06/29/2024 1:16 PM Age: 38 years old Clinical indication: Screening exam; Routine US, uterus; Additional info: Follow up US on spine/outflow tracts 4 weeks LABS AND CLINICAL REPORTS: Gestational age (Established): 24 w 6 d Estimated due date (Established): 10/13/2024 TECHNIQUE: Imaging protocol: Real-time ultrasound of the maternal uterus with image documentation. Exam focused on the clinical indication. COMPARISON: US OB >= 14 weeks fetus [id number] 05/30/2024 10:20 AM FINDINGS: Gestation: Single, viable intrauterine gestation. heart rate: 157 bpm Placenta: The placenta is posterior. ANATOMY: heart four-chamber view, heart size and position: There is a four-chamber heart. heart left ventricular outflow tract: Right and left ventricular outflow tracts are unremarkable. spine: The spine is unremarkable. external genitalia: Images show presumptive female genitalia. MATERNAL: Cervix: Limited visualization of the maternal cervix due to positioning of the head and an incompletely filled bladder. The cervix appears closed however. US/US OB limited 12024 IMPRESSION: 1. Single, viable intrauterine gestation. 2. Limited anatomic survey is unremarkable.
== END 2024-06-29 13:02 | disposition home or self-care (01) ==
LOC: RAD 13:02
PROVIDERS: PCP Family Medicine; Visit Provider Family Medicine
DX: Z34.80 Encounter for supervision of other normal pregnancy, unspecified trimester (principal)
CPT/HCPCS: 76815

== ENCOUNTER → 2024-07-02 09:43 | Outpatient (BNVA) | payer OTHER, MEDICAID, SELFPAY | PROVIDERS: PCP Family Medicine; Visit Provider Family Medicine | DX: Z34.80 Encounter for supervision of other normal pregnancy, unspecified trimester (principal) | CPT/HCPCS: 82950 ==

== ENCOUNTER → 2024-07-30 14:00 | Outpatient (BNVA) | payer OTHER, MEDICAID, SELFPAY | PROVIDERS: PCP Family Medicine; Visit Provider Family Medicine | DX: Z34.80 Encounter for supervision of other normal pregnancy, unspecified trimester (principal); Z51.81 Encounter for therapeutic drug level monitoring; Z3A.00 Weeks of gestation of pregnancy not specified | CPT/HCPCS: 83735; 85025 ==

== ENCOUNTER → 2024-08-13 10:55 | Outpatient (BNVA) | payer OTHER, MEDICAID, SELFPAY | PROVIDERS: PCP Family Medicine; Visit Provider Family Medicine | DX: N18.9 Chronic kidney disease, unspecified (principal) | CPT/HCPCS: 82951; 82952; 85025 ==

== ENCOUNTER → 2024-08-31 09:49 | Outpatient (BNVA) | payer OTHER, MEDICAID, SELFPAY | PROVIDERS: PCP Family Medicine; Visit Provider Family Medicine | DX: Z34.80 Encounter for supervision of other normal pregnancy, unspecified trimester (principal); R03.0 Elevated blood-pressure reading, without diagnosis of hypertension; Z51.81 Encounter for therapeutic drug level monitoring | CPT/HCPCS: 80053; 81000; 84156; 84550; 85025 ==

== ENCOUNTER → 2024-09-10 09:00 | Outpatient (BNVA) | payer MEDICAID, SELFPAY | PROVIDERS: PCP Family Medicine; Visit Provider Family Medicine | DX: Z34.80 Encounter for supervision of other normal pregnancy, unspecified trimester (principal); Z3A.00 Weeks of gestation of pregnancy not specified; R03.0 Elevated blood-pressure reading, without diagnosis of hypertension; Z51.81 Encounter for therapeutic drug level monitoring | CPT/HCPCS: 80053; 83615; 84550; 85025 ==

== ENCOUNTER → 2024-09-18 14:03 | Outpatient (BNVA) | payer MEDICAID, SELFPAY | PROVIDERS: PCP Family Medicine; Visit Provider Family Medicine | DX: Z34.80 Encounter for supervision of other normal pregnancy, unspecified trimester (principal); R03.0 Elevated blood-pressure reading, without diagnosis of hypertension; Z51.81 Encounter for therapeutic drug level monitoring | CPT/HCPCS: 80053; 82570; 83010; 83615; 84156; 84550; 85025; 85610; 87081 ==

== ENCOUNTER 2024-10-10 04:49 | Inpatient (IN) | payer MEDICAID, SELFPAY ==
--- NOTE | 2024-09-27 10:01 | ANES.PREANE2 ---
Pre-Anesthetic Assessment Height/Weight: Height 1.68 m Operation Date: 10/10/24 07:20 Proposed Procedures p Section Repeat 11078, O34.219(Not Applicable) - Fermín Hernandez MD Pulmonary None reported CV/HEM Arrythmia (SVT since childhood, no issues currently not medicated.) and Hypertension (140s/90s induced history of PreE) Echo 2022 Normal left ventricular size, systolic function and wall thickness, with no regional wall motion abnormalities. Normal left ventricular wall thickness. Normal diastolic filling pattern. Left ventricular ejection fraction is estimated at 60 %. Mildly increased left atrial size. Structurally normal mitral valve. Trace mitral valve regurgitation. There are no prior echocardiogram studies to compare. Hepatic elevated liver enzymes over the last two weeks. GI Gastroesophageal Reflux Disease Metabolic None reported Musc/skel None reported Neuropsych None reported Anesthetic Plan ASA status: 3 Anesthesia: Eval. for regional block Other: SAB Patient has had 3 previous C/S. Patient reported issues with SVT during previous (2022) No issues currently. Patient reported issues with PreE without severe features in previous resulting in C/S 10 days prior to due date. Patient stated with this that creatinine increased to 1 and trended back to baseline, liver enzymes and BP have been rising over the last few weeks. Medications/Allergies Home Medications Medication Instructions Recorded Confirmed Last Taken Type multivitamin no.51-ferrous 1 cap PO BREAKFAST #30 caps 06/23/23 09/25/24 Unknown Rx fumarate 106.5 mg-folic acid 1 mg capsule (-U) doxylamine succinate 25 mg tablet See Rx Instructions .Route 03/23/24 09/25/24 Unknown Rx .COMPLEX PRN allergy symptoms #30 tabs ondansetron HCl 4 mg tablet 4 mg PO Q8H PRN nausea and 03/23/24 09/25/24 Unknown Rx vomiting #20 tabs pyridoxine (vitamin B6) 100 mg 100 mg PO BID PRN Nausea #60 tabs 03/23/24 09/25/24 Unknown Rx tablet nystatin 100,000 unit/gram topical 1 applic topical BID #30 grams 07/02/24 09/25/24 Unknown Rx cream ferrous sulfate 325 mg (65 mg 325 mg PO BID #60 tabs 07/31/24 09/25/24 Unknown Rx iron) tablet magnesium oxide 400 mg PO DAILY #30 tabs 07/31/24 09/25/24 Unknown Rx Allergies Allergy/AdvReac Type Severity Reaction Status Date / Time bupropion [From Wellbutrin] Allergy ALGY-Hives Verified 05/30/24 11:46 Latex, Natural Rubber Allergy ADR-Itching Verified 05/30/24 11:46 [facility] Anesthesia Medical History Hx of supraventricular tachycardia None since 8-9 years old Surgical History Status post section Hx of inguinal hernia surgery Right Hx of section x 3 - done in 2012, 2014 and 2022 Family History Father Prediabetes Denies family history of Colon cancer Ovarian cancer Diabetes Heart disease Hypercholesteremia Breast cancer Uterine cancer Thyroid disease Stroke Social History Smoking and tobacco/nicotine status: never used tobacco/nicotine Alcohol intake: former Former alcohol use details: Not during - 5-6 per day Substance/Drug Use: never 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
[2024-10-10] VITALS (22 sets, daily range): BP systolic 107–161; BP diastolic 47–127; PULSE 70–100; RESP 16–18; TEMP 36.9; O2SAT 98–100; BMI 39.9
[2024-10-10 06:02] LABS: Basophils % 0.4 %; Eosinophils # 0.1 10^3/uL (0.0-0.8); Eosinophils % 1.3 %; Hematocrit 35.6 % (36-47); Lymphocytes # 2.7 10^3/uL (0.8-4.8); Lymphocytes % 31.7 %; Mean Corpuscular HGB Conc 32.9 g/dL (30-55); Mean Corpuscular Hemoglobin 26.4 pg (27-33); Mean Corpuscular Volume 80.4 fl (85-98); Mean Platelet Volume 12.1 fL (7.4-10.4); Monocytes # 0.6 10^3/uL (0.2-0.9); Monocytes % 6.8 %; Neutrophils # 5.03 10^3/uL (1.8-7.7); Neutrophils % 59.6 %; Nucleated Red Blood Cells % 0 %; Platelet Count 173 10^3/cmm (157-399); Red Blood Count 4.43 10^6/uL (3.85-5.65); Red Cell Distribution Width 15.9 % (12.1-15.1); White Blood Count 8.43 10^3/uL (3.29-11.43)
[2024-10-10] MEDS: sodium chloride 0.9% 1,000 ML 999 ML IV (06:04)
--- NOTE | 2024-10-10 06:48 | ANES.PAUD2 ---
Pre-Anesthetic Update Pre-Anesthetic Assessment: Date of Surgery/Procedure: 10/10/24 Proposed Procedure: Operation Date: 10/10/24 07:20 Proposed Procedures p Section Repeat 82853, O34.219(Not Applicable) - Fermín Hernandez MD Last Intake: 1800 10/10/24 meal 2230 10/10/24 liquids Labs Last 48hrs: Short CBC 10/10/24 Range/Units 05:20 WBC 8.43 (3.29-11.43) 10^ 3/uL Hgb 11.70 (11.27-16.99) g/ dL Hct 35.6 L (36-47) % MCV 80.4 L (85-98) fl Plt Count 173 (157-399) 10^3/c mm Neut % (Auto) 59.6 % Neut # (Auto) 5.03 (1.8-7.7) 10^3/u L Other Pertinent Information: Other Pertinent Information: no changes in health condition. Cardiac Studies: Echocardiogram 03/23/23
--- NOTE | 2024-10-10 06:50 | P.HP_ITS ---
Providers/Chief Complaint 2 Admitting Physician: Fermín Hernandez MD Primary Care Provider: Fermín Hernandez MD Chief Complaint: O34.219 History of Present Illness Shazia Andrade is a 38 year old @ 39.4 weeks by LMP c/with 10 wk US. Preg c/b h/o C/S x 3, anxiety off of Sertraline, h/o etoh abuse, FOB with fam history of spina bifida, h/o induced thrombocytopenia, h/o placental abruption, h/o mitral valve regurgitation - mild during , h/o preeclampsia, FOB with HSV, h/o hemorrhage, anemia, low magnesium. The patient presents to L&D triage for a scheduled rLTCS. She is feeling well and has no concerns. She denies any chest pains, shortness of breath, nausea, vomiting, diarrhea, constipation, dysuria, leakage of fluid, vaginal bleeding and fevers. Medications/Allergies Home Medications Medication Instructions Recorded Confirmed Last Taken Type multivitamin no.51-ferrous 1 cap PO BREAKFAST #30 caps 06/23/23 10/09/24 Unknown Rx fumarate 106.5 mg-folic acid 1 mg capsule (-U) ferrous sulfate 325 mg (65 mg 325 mg PO BID #60 tabs 07/31/24 10/09/24 Unknown Rx iron) tablet magnesium oxide 400 mg PO DAILY #30 tabs 07/31/24 10/09/24 Unknown Rx Allergies Allergy/AdvReac Type Severity Reaction Status Date / Time bupropion [From Wellbutrin] Allergy ALGY-Hives Verified 05/30/24 11:46 Latex, Natural Rubber Allergy ADR-Itching Verified 05/30/24 11:46 PFSH Acute 2 PFSH: Medical History Hx of supraventricular tachycardia None since 8-9 years old Surgical History Status post section Hx of inguinal hernia surgery Right Hx of section x 3 - done in 2012, 2014 and 2022 Family History Father Prediabetes Denies family history of Colon cancer Ovarian cancer Diabetes Heart disease Hypercholesteremia Breast cancer Uterine cancer Thyroid disease Stroke Social History Smoking and tobacco/nicotine status: never used tobacco/nicotine Alcohol intake: former Former alcohol use details: Not during - 5-6 per day Substance/Drug Use: never 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 We will plan to proceed with a repeat LTCS today. FHT's are in a category 1 tracing. All questions were answered. The patient and her are in agreement with the current plan of care. Attestations 2 Medical Necessity Statement*: The patient will be here for greater than two midnights due to routine intrapartum and management of labor and delivery. Coding Level of Care Code Acute Code for Chg Fwd Diagnoses Supervision of normal intrauterine in multigravida Z34.80
[2024-10-10] MEDS: metoclopramide 5 mg/mL SDV 2 mL 10 MG IV (07:25)
[2024-10-10] MEDS: ceFAZolin 2,000 mg SDV 2000 MG IVP (07:25)
--- NOTE | 2024-10-10 08:56 | PM.OP ---
Operative Report Date of procedure: October 10, 2024 Pre-op diagnosis: 1. Intrauterine at 39.4 weeks gestation 2. Anxiety 3. History of low-transverse section Post-op diagnosis: 1. Intrauterine status post repeat low-transverse section at 39.4 weeks gestation 2. Anxiety 3. History of low-transverse section 4. Delivery of healthy infant female weighing 7 pounds 4 ounces with Apgars of 9 and 9 Procedure done: Repeat low-transverse section Specimens removed/disposition: Placenta discarded Surgeon: Fermín Hernandze MD Estimated blood loss: 500 mL Complications: None Findings: 1. Healthy infant female weighing 7 pounds 4 ounces with Apgars of 9 and 9 2. Intact placenta with a central umbilical cord insertion site Brief History: Shazia Andrade is a 38 year old G5 now P4 status post repeat low-transverse section @ 39.4 weeks by LMP c/with 10 wk US. Preg c/b h/o C/S x 3, anxiety off of Sertraline, h/o etoh abuse, FOB with fam history of spina bifida, h/o induced thrombocytopenia, h/o placental abruption, h/o mitral valve regurgitation - mild during , h/o preeclampsia, FOB with HSV, h/o hemorrhage, anemia, low magnesium. The patient presented for a scheduled repeat low-transverse section. She had been feeling well. She denied any concerns. Procedure: After informed consent was obtained, the patient was taken to the operating room and the patient was prepped and draped in a normal sterile fashion in the dorsal supine position.? A spinal was placed and adequate anesthesia was obtained.? At 7:21 AM on 10/10/2024 a Pfannenstiel skin incision was made and carried through to the underlying layer of fascia using a scalpel.? The fascial incision was then extended laterally using curved Mayos.? The fascia was then grasped with Bonita clamps and the underlying rectus muscles were dissected off taking care to avoid injury to the underlying tissues.? The peritoneum was entered bluntly with one digit.? It was then bluntly.? The bladder blade was placed and the vesicouterine peritoneum was well below the lower uterine segment of the uterus.? The uterine incision was made in the lower uterine segment in a transverse fashion with the scalpel at 7:28 AM.? The amniotic membrane was entered bluntly and a moderate amount of clear fluid was noted.? Uterine pressure was placed and the 's head delivered without complication at 7:32 AM on 10/10/2024.? There was no nuchal cord.? The mouth and nose were suctioned.? The rest of the delivered without difficulty.? The took a breath immediately upon delivery.? The cord was clamped and cut and the infant was handed to the awaiting pediatric nurses.? The placenta was then manually expressed.? The uterus was not able to be exteriorized from the abdomen.? A wet lap was used to clear the uterus of clots and debris.? The bladder blade was reinserted and the uterine incision was closed using 0 chromic in a running locking fashion.? The uterus was noted to be firm.? A second layer of the same suture was used in the same manner.? Excellent hemostasis was obtained. Next the posterior cul-de-sac was cleared of any blood. The gutters were cleared of any further clots and debris and the uterine incision was again inspected and hemostasis was noted.? The subfascial tissue was inspected for hemostasis and the peritoneum was re-approximated using 2-0 plain in a running fashion.? The fascia was then re-approximated using 0 Vicryl in a running fashion.? The subcutaneous tissue was inspected for hemostasis.? Jose L's fascia was then re-approximated using 3-0 plain in a running fashion.? Good hemostasis was noted.? The subcutaneous tissue was then re-approximated using a subcuticular stitch.? The patient tolerated the procedure well and was recovered in stable condition.? Estimated blood loss was 500 mL. Urine in the Nava catheter was clear. The patient was taken to recovery in good condition.
[2024-10-10] MEDS: dextrose 5%-lactated ringers 1,000 ML 125 ML IV (09:40)
[2024-10-10] MEDS: oxytocin 30 UNIT/500 ML BAG 999 UNIT IV (09:40)
[2024-10-10] MEDS: tranexamic acid 1,000 MG/100 ML PREMIX 600 MG IV (09:40)
[2024-10-10] MEDS: hyDROXYzine 25 mg Capsule 50 MG PO (11:42)
--- NOTE | 2024-10-10 12:39 | PC.NURSE ---
0900 REMAINS IN OR FOR RECOVERY
[2024-10-10] MEDS: oxyCODONE-APAP 5-325 mg Tablet PO ×2 (16:04→20:38)
[2024-10-10] MEDS: ketorolac 30 mg/mL INJ IVP ×2 (16:05→21:50)
--- NOTE | 2024-10-10 16:11 | PC.NURSE ---
PATIENT WAS RESTING WITH EYES CLOSED AT 1445 WAS GOING TO GET HER UP BUT SHE WAS RESTING AND NOW SHE HAS COMPANY. TOLD HER THAT I WOULD GET HER UP AFTER THEY LEAVE AND THAT IT WAS NO HURRY JUST TO LET ME KNOW WHEN SHE IS READY TO GET UP.
--- NOTE | 2024-10-10 17:08 | PC.NURSE ---
1600 TURNED OVER PATIENT CARE AT THIS TIME TO SAM GOFF RN.
[2024-10-10] MEDS: diphenhydrAMINE 50 mg/mL SDV 1mL 25 MG IVP (18:36)
[2024-10-10 20:06] LABS: Hematocrit 28.9 % (36-47); Mean Corpuscular HGB Conc 33.2 g/dL (30-55); Mean Corpuscular Hemoglobin 26.7 pg (27-33); Mean Corpuscular Volume 80.3 fl (85-98); Mean Platelet Volume 11.8 fL (7.4-10.4); Platelet Count 126 10^3/cmm (157-399); Red Cell Distribution Width 15.9 % (12.1-15.1); White Blood Count 8.32 10^3/uL (3.29-11.43)
[2024-10-10] MEDS: docusate sodium 100 mg Capsule PO (21:50)
[2024-10-10] MEDS: ferrous sulfate EC 325 mg Tablet PO (21:50)
[2024-10-11] VITALS (7 sets, daily range): BP systolic 108; BP diastolic 70; PULSE 94; RESP 16–18; TEMP 36.6–36.7; O2SAT 98
[2024-10-11] MEDS: oxyCODONE-APAP 5-325 mg Tablet PO ×5 (00:26→23:59)
[2024-10-11] MEDS: ketorolac 30 mg/mL INJ IVP (03:19)
--- NOTE | 2024-10-11 08:23 | P.PN_ITS ---
Subjective 2 Subjective: The patient is doing well overall today. Her pain is well-managed with current medications. She is having some pain on the left side. She had this pain prior to the surgery and with her last as well. She has a history of a right inguinal hernia repair. Her bleeding is decreasing well. Yesterday it had started to increase and she was given a dose of TXA and Pitocin and her bleeding has been scant since then. She has been passing gas and been able to tolerate food by mouth. She is ambulating, voiding. Vitals/I&O/Wt Last Vital Signs Temp 97.9 F 10/11/24 05:38 Pulse 83 10/10/24 15:33 Resp 16 10/11/24 05:38 BP 125/67 10/10/24 15:33 Pulse Ox 99 10/10/24 09:20 O2 Del Method Room Air 10/10/24 05:15 10/10/24 10/11/24 10/11/24 22:59 06:59 14:59 Output Total 700 / 1300 Balance -700 / 400 Weight last 48 hrs Weight 247 lb Weight 247 lb Physical Exam 2 Narrative: General: Alert and oriented x3 Cardiac: Regular rate and rhythm without murmurs Lungs: Clear to auscultation bilaterally without wheezes, crackles or rhonchi Abdomen: Soft, mild to moderate tenderness over uterus. The uterus is firm and 2 cm below the umbilicus. Mild diffuse pain. Extremities: Trace edema in the bilateral lower extremities Skin: Mild rash noted over the left lower abdomen where the tape has been removed. Signs of mild skin tear present. Urinary Catheter Management: Nava: Cath Placed During This Visit: yes, but has since been removed by the nurse Reason for Continuing Indwelling Catheter: Perioperative Use in Selected Surgeries Urinary Catheter Date of Insertion: 10/10/24 Urinary Catheter Time of Insertion: 07:10 Date Urinary Catheter Removed: 10/10/24 Time Urinary Catheter Discontinued: 07:40 Latex Free: Cath Placed During This Visit: yes, but has since been removed by the nurse Reason for Continuing Indwelling Catheter: Acute Urinary Retention or Obstruction Urinary Catheter Date of Insertion: 10/10/24 Urinary Catheter Time of Insertion: 07:40 Date Urinary Catheter Removed: 10/10/24 Time Urinary Catheter Discontinued: 17:45 Data 10/10/24 19:45 A&P Assessment and plan (1) Status post section: The patient is having pain over the left lower abdomen and this has been present since before the surgery and during the . I do not see any scar tissue to suggest the reason for this pain. We discussed that it would be possible that she may have a hernia as she has a history of hernia on the right side as well as an umbilical hernia. She may consider having this evaluated when she sees general surgery for hernia repair. Otherwise, the patient is doing well and showing no signs of significant complications. We will continue with pain medications. Her bleeding is decreasing well. No signs of infection present. We will evaluate tomorrow to see if she is ready for discharge home at that time or not yet. (2) Anxiety: The patient has been more anxious and would like to restart on sertraline. We will get this restarted today. Attestations 2 Medical Necessity Statement*: The patient continues to need inpatient care as she recovers after section. Her stay will cross 2 midnights. Coding Level of Care Code Acute Code for Chg Fwd Diagnoses Status post section Z98.891 Anxiety F41.9
[2024-10-11] MEDS: PRENATAL VIT NO.130/IRON/FOLIC 1 EACH TABLET PO (09:32)
[2024-10-11] MEDS: docusate sodium 100 mg Capsule PO (09:33)
[2024-10-11] MEDS: sertraline 50 mg Tablet 25 MG PO (09:33)
[2024-10-11] MEDS: ibuprofen 800 mg tablet PO ×3 (09:33→21:06)
[2024-10-12 04:00] VITALS: RESP 16
[2024-10-12] MEDS: oxyCODONE-APAP 5-325 mg Tablet PO ×2 (04:00→07:45)
[2024-10-12 06:00] VITALS: BP 104/67; PULSE 74; RESP 16; TEMP 36.8
--- NOTE | 2024-10-12 06:51 | P.DS_ITS ---
Discharge Providers Date of Admission: 10/10/24 04:49 Date of Discharge: October 12, 2024 Attending Provider at Admission: Fermín Hernandez MD Attending Provider at Discharge: Fermín Hernandez MD Primary Care Provider: Fermín Hernandez MD Diagnoses at Discharge Discharge Diagnosis (1) Status post section: Status: Acute (2) Anxiety: Status: Acute Other Information Additional DC diagnoses/information: 1. Intrauterine status post repeat low-transverse section at 39.4 weeks gestation 2. Anxiety 3. History of low-transverse section 4. Delivery of healthy female weighing 7 pounds 4 ounces with Apgars of 9 and 9 Reason for Visit Reason for Visit: O34.219 Brief History: Shazia Andrade is a 38 year old G5 now P4 status post repeat low-transverse section @ 39.4 weeks by LMP c/with 10 wk US. Preg c/b h/o C/S x 3, anxiety off of Sertraline, h/o etoh abuse, FOB with fam history of spina bifida, h/o induced thrombocytopenia, h/o placental abruption, h/o mitral valve regurgitation - mild during , h/o preeclampsia, FOB with HSV, h/o hemorrhage, anemia, low magnesium. The patient presents to L&D triage for a scheduled rLTCS. Hospital Course Hospital Course The patient had a repeat low-transverse section without complication. Her bleeding was well-controlled initially, however started to increase, so she was given TXA and IV Pitocin. With this her bleeding slowed well. The patient has had some pain in the left lower quadrant lateral to the incisional area. This was present prior to the surgery and also during her last as well. We discussed the possible causes and this could be an underlying hernia. We may need to have this further evaluated as an outpatient. The patient's incision is clean and dry without signs of infection or dehiscence. She did have some mild skin tear related to the tape on the left lower abdominal wall. We will have her use mupirocin topically for this. Her pain is currently well- controlled with ibuprofen and Percocet. We will have her work on gradually weaning this down as well. The patient is ambulating, voiding, passing gas and tolerating food by mouth. We will plan to follow-up at 2 weeks and 6 weeks or sooner if needed. Routine discharge instructions were discussed. All questions were answered. The patient and her are in agreement with current plan of care. Physical Exam Narrative: General: Alert and oriented x3 Cardiac: Regular rate and rhythm without murmurs Lungs: Clear to auscultation bilaterally without wheezes, crackles or rhonchi Abdomen: Soft, mild to moderate tenderness over uterus. The uterus is firm and 2 cm below the umbilicus. Mild diffuse pain. Extremities: Trace edema in the bilateral lower extremities Skin: Mild rash noted over the left lower abdomen where the tape has been removed. Signs of mild skin tear present. Incision is clean and dry without signs of infection or dehiscence. Urinary Catheter Management: Nava: Cath Placed During This Visit: yes, but has since been removed by the nurse Reason for Continuing Indwelling Catheter: Perioperative Use in Selected Surgeries Urinary Catheter Date of Insertion: 10/10/24 Urinary Catheter Time of Insertion: 07:10 Date Urinary Catheter Removed: 10/10/24 Time Urinary Catheter Discontinued: 07:40 Latex Free: Cath Placed During This Visit: yes, but has since been removed by the nurse Reason for Continuing Indwelling Catheter: Acute Urinary Retention or Obstruction Urinary Catheter Date of Insertion: 10/10/24 Urinary Catheter Time of Insertion: 07:40 Date Urinary Catheter Removed: 10/10/24 Time Urinary Catheter Discontinued: 17:45 Discharge Data Studies Completed and Pending Laboratory Results WBC 8.32 10^3/uL (3.29-11.43) 10/10/24 19:45 RBC 3.60 10^6/uL (3.85-5.65) L 10/10/24 19:45 Hgb 9.60 g/dL (11.27-16.99) L 10/10/24 19:45 Hct 28.9 % (36-47) L 10/10/24 19:45 MCV 80.3 fl (85-98) L 10/10/24 19:45 MCH 26.7 pg (27-33) L 10/10/24 19:45 MCHC 33.2 g/dL (30-55) 10/10/24 19:45 RDW 15.9 % (12.1-15.1) H 10/10/24 19:45 Plt Count 126 10^3/cmm (157-399) L 10/10/24 19:45 MPV 11.8 fL (7.4-10.4) H 10/10/24 19:45 Neut % (Auto) 59.6 % 10/10/24 05:20 Lymph % (Auto) 31.7 % 10/10/24 05:20 [place] % (Auto) 6.8 % 10/10/24 05:20 Eos % (Auto) 1.3 % 10/10/24 05:20 Baso % (Auto) 0.4 % 10/10/24 05:20 Neut # (Auto) 5.03 10^3/uL (1.8-7.7) 10/10/24 05:20 Lymph # (Auto) 2.7 10^3/uL (0.8-4.8) 10/10/24 05:20 [place] # (Auto) 0.6 10^3/uL (0.2-0.9) 10/10/24 05:20 Eos # (Auto) 0.1 10^3/uL (0.0-0.8) 10/10/24 05:20 Baso # (Auto) 0.0 10^3/uL (0.0-0.1) 10/10/24 05:20 Nucleated RBC % (auto) 0 % 10/10/24 05:20 Nucleated RBCs # 0.0 /100WBC 10/10/24 05:20 Blood Type B Positive 10/10/24 05:20 Rho(D) Type Rh positive 10/10/24 05:20 Antibody Screen Negative 10/10/24 05:20 Vitals Last Vital Signs Temp 98.0 F 10/11/24 21:00 Pulse 94 10/11/24 21:00 Resp 16 10/12/24 04:00 BP 108/70 10/11/24 21:00 Pulse Ox 98 10/11/24 21:00 O2 Del Method Room Air 10/11/24 21:00 Discharge Plan Discharge Patient Disposition: Home Condition: Good Prescriptions: New ibuprofen 800 mg Tablet 800 mg PO TID Qty: 60 0RF oxycodone-acetaminophen 5-325 mg Tablet 1 tab PO Q6H PRN (Reason: Moderate To Severe Pain) Qty: 30 0RF mupirocin 2 % ointment 1 applic topical BID Qty: 15 0RF Continued ferrous sulfate 325 mg (65 mg iron) tablet 325 mg PO BID Qty: 60 3RF magnesium oxide 400 mg magnesium tablet 400 mg PO DAILY Qty: 30 3RF -U 106.5-1 mg Capsule 1 cap PO BREAKFAST Qty: 30 6RF Discharge Orders: Discharge Order (Routine); Ordered 10/12/24 Ordered By: Fermín Hernandez Referrals: Fermín Hernandez MD [Primary Care Provider] - 10/26/24 10:00 am Discharge Diet: Regular Discharge Activity: Limit activity as instructed Patient Instructions: Mupirocin (On the skin) (Bactroban, Centany, Centany AT, Dermawerx..., Ibuprofen (By mouth), Oxycodone/Acetaminophen (By mouth) (Percocet), Depression (DC), Preeclampsia and Eclampsia After Delivery (GEN), Hemorrhage (DC), OB Caring for Baby - [facility], OB [facility], OB Discharge Report, OB Food/Drug Interaction Guide, Opioid Safety, OB Your Care - [facility], Abnormal Bleeding Activity Restrictions/Additional Instructions: Do not lift anything heavier than your infant in the car seat for the first 3 weeks, then gradually increase. Full lifting at 6 weeks . If you have any concern for infection in your incision site, please seek immediate medical attention. Showers are recommended instead of baths for the first 6 weeks. Discharge Attestations Time Spent in Discharge Care*: greater than 30 min Quality Metrics Clinical Quality Measures [ No reported AMI, CVA or VTE this stay] Coding Level of Care Code Acute Code for Chg Fwd Diagnoses Status post section Z98.891 Anxiety F41.9
[2024-10-12 07:40] VITALS: BP 120/78; PULSE 82; RESP 18; TEMP 36.7
[2024-10-12 07:45] VITALS: RESP 18
[2024-10-12] MEDS: ibuprofen 800 mg tablet PO (07:45)
[2024-10-12] MEDS: docusate sodium 100 mg Capsule PO (07:46)
[2024-10-12] MEDS: ferrous sulfate EC 325 mg Tablet PO (07:46)
[2024-10-12] MEDS: sertraline 50 mg Tablet 25 MG PO (07:48)
[2024-10-12] MEDS: PRENATAL VIT NO.130/IRON/FOLIC 1 EACH TABLET PO (07:49)
[2024-10-12 08:40] VITALS: BP 126/97; PULSE 71; RESP 16; TEMP 36.8; O2SAT 98
--- OUTSIDE RECORDS SUMMARY | 2024-10-16 05:39 | XMS_ITS | Clinical Summary ---
Author Organization [facility] Address [address] [place] [address] Care Team Providers Care Cone Tender Name Role Phone Magda Lares DO Primary Care Provider Allergies Active Allergy Reactions Criticality Noted Date Comments Bupropion Hives High 08/03/2016 Latex Itching Low 05/03/2018 Medications ketoconazole (NIZORAL) 2 % ShampooIndications :Hair loss,Flaking of scalp Shampoo hair and scalp daily as needed for dry scalp.. 120 mL 6 11/05/19 17 Active dicyclomine (BENTYL) 10 mg capsule Take 10 mg by mouth 4 times daily. Active Ethinyl Estradiol-Norelges trom 150-35 mcg/24 hr Patch Weekly PATCHIndications:E ncounter for initial prescription of other contraceptives Apply 1 Patch to skin as directed see administration instructions. 3 Patch 12 08/18/20 18 Active eletriptan (RELPAX) 40 mg TabletIndications: Intractable menstrual migraine without status migrainosus Take 1 Tablet (40 mg) by mouth every 2 hours as needed for Migraine may repeat in 2 hours; max dose 80mg in 24 hours. 10 Tablet 6 10/06/19 19 Active phentermine (ADIPEX P) 37.5 mg tabletIndications: Obesity (BMI 30.0-34.9) Take 1 Tablet (37.5 mg) by mouth daily before breakfast. 30 Tablet 2 12/09/19 19 Active ALPRAZolam (XANAX) 0.25 mg tabletIndications: Anxiety attack Take 1 Tablet (0.25 mg) by mouth 2 times daily as needed for Anxiety. 30 Tablet 2 12/09/19 19 Active baclofen (LIORESAL) 10 mg tabletIndications: Lumbar back pain with radiculopathy affecting lower extremity TAKE 1/2 TO 1 (ONE-HALF TO ONE) TABLET BY MOUTH TWICE DAILY 60 Tablet 1 04/24/20 19 Active TRINTELLIX 20 mg tabletIndications: Moderate episode of recurrent major depressive disorder (CMS/HCC) TAKE 1 TABLET BY MOUTH ONCE DAILY 30 Tablet 08/24/20 19 Active Active Problems Problem Noted Date Diagnosed Date Family history of hypothyroidism 08/03/2016 ADD (attention deficit disorder) 08/03/2016 Anxiety attack 08/03/2016 Immunizations Immunization Administration Dates Next Due Influenza Vaccine Split 3+ Yrs IM 11/05/2016 Family History Medical History Relation Name Comments Hypertension Father Thyroid Disease Maternal Grandmother Thyroid Disease Mother Diabetes Paternal Grandmother Relation Name Status Comments Father Maternal Grandmother Mother Paternal Grandmother Social History Tobacco Use Types Packs/Day Years Used Date Smoking Tobacco: Never Smokeless Tobacco: Never Comments No Sex and Gender Information Value Date Recorded Sex Assigned at Not on file Legal Sex Female 7:32 AM TRAVELING SALES REPRESENTATIVE Gender Identity Not on file Sexual Orientation Not on file Last Filed Vital Signs Vital Sign Reading Time Taken Comments Blood Pressure 128/82 12/08/2018 2:19 PM CDT Pulse 109 12/08/2018 2:19 PM CDT Temperature 36.7 ??C (98 ??F) 12/08/2018 2:19 PM CDT Respiratory Rate 18 12/08/2018 2:19 PM CDT Oxygen Saturation 96% 12/08/2018 2:19 PM CDT Inhaled Oxygen Concentration - - Weight 97.1 kg (214 lb) 12/08/2018 2:19 PM CDT Height 165.1 cm (5' 5 ) 12/08/2018 2:19 PM CDT Body Mass Index 35.61 12/08/2018 2:19 PM CDT Plan of Treatment Health Maintenance Due Date Last Done Comments DTAP/TDAP/TD VACCINES (1 - Tdap) 12/26/2006 HEPATITIS B VACCINES (1 of 3 - 19+ 3-dose series) 12/26/2006 CERVICAL CANCER SCREENING 09/02/2019 09/02/2016 INFLUENZA VACCINE (#1) 2024 11/05/2016 HPV VACCINES Aged Out No longer eligi ble based on patient's age to complete this topic PNEUMOCOCCAL VACCINE 0-64 YEARS Aged Out No longer eligible based on patient's age to complete this topic Procedures Procedure Name Priority Date/Time Associated Diagnosis Comments CERV/VAG CYTOPATH, THIN PREP W/RFLX HPV Routine 09/02/2016 2:57 PM TRAVELING SALES REPRESENTATIVE Well woman exam with routine gynecological exam from Last 3 Months or Most Recently Relevant to Health Maintenance Results * CERV/VAG CYTOPATH, THIN PREP W/RFLX HPV (09/02/2016 2:57 PM TRAVELING SALES REPRESENTATIVE) CLINICAL INFORMATION SEE COMMENT 09/07/2016 4:06 PM TRAVELING SALES REPRESENTATIVE [facility] Comment:Information not prov ided LAST MENSTRUAL PERIOD [id number]/07/2016 4:06 PM TRAVELING SALES REPRESENTATIVE [facility] PREV PAP: SEE COMMENT 09/07/2016 4:06 PM TRAVELING SALES REPRESENTATIVE [facility] Comment:INFORMATION NOT PROV IDED PREV BX: SEE COMMENT 09/07/2016 4:06 PM TRAVELING SALES REPRESENTATIVE [facility] Comment:INFORMATION NOT PROV IDED SOURCE Endocervix 09/07/2016 4:06 PM TRAVELING SALES REPRESENTATIVE [facility] ADEQUACY: SEE COMMENT 09/07/2016 4:06 PM TRAVELING SALES REPRESENTATIVE [facility] Comment: Satisfactory for evaluation. Endocervical/transformation zone component present. PAP INTERP SEE COMMENT 09/07/2016 4:06 PM TRAVELING SALES REPRESENTATIVE [facility] Comment:Negative for intraep ithelial lesion or malignancy. DIRECTOR OF STRATEGIC MARKETING: SEE COMMENT 2015 4:06 PM TRAVELING SALES REPRESENTATIVE [facility] Comment: BAB, CT(ASCP) CT screening location: [place] [address] [address] [place] [address] Genital SWAB OF ENDOCERVIX / Unknown Collection / Unknown 09/02/2016 2:57 PM TRAVELING SALES REPRESENTATIVE 09/03/2016 7:22 AM TRAVELING SALES REPRESENTATIVE Narrative [facility] - 09/07/2016 4:06 PM TRAVELING SALES REPRESENTATIVE Performing Organization Information: ?Site ID: [id number] ?Name: [facility] ?Address: [facility] [address] [place] [address] ?Director: Jeovanny Wilson MD us Paola J Rogers COLLET DRILLER PATHOLOGY/CYTOLOGY ORDERABLES Final Result [facility] from Last 3 Months or Most Recently Relevant to Health Maintenance Insurance Care Teams Cone Tender Relationship Specialty Start Date End Date Magda Lares DO [address] [place] [address] PCP - General Family Practice 09/03/16
--- OUTSIDE RECORDS SUMMARY | 2024-10-16 05:39 | XMS_ITS | Clinical Summary ---
Author Organization [employer] Address [address] [facility] Attn: Epic Prelude ADT [place] [address] Care Team Providers Care Lead Business Systems Analyst Name Role Phone Magda Lares DO Primary Care Provider Allergies Active Allergy Reactions Criticality Noted Date Comments Bupropion Hives High 08/03/2016 Latex Itching Low 05/03/2018 Medications eletriptan (RELPAX) 40 mg TabletIndicatio ns:Intractable menstrual migraine without status migrainosus Take 1 Tablet (40 mg) by mouth every 2 hours as needed for Migraine may repeat in 2 hours; max dose 80mg in 24 hours. 10 Tablet 6 10/06/19 19 Active Ethinyl Estradiol-Norel gestrom 150-35 mcg/24 hr Patch Weekly PATCHIndication s: control counseling Apply 1 Patch to skin as directed see administration instructions. 3 Patch 2 04/21/20 22 Active ALPRAZolam (XANAX) 0.25 mg tabletIndicatio ns:Anxiety attack Take 1 Tablet (0.25 mg) by mouth 2 times daily as needed for Anxiety. 30 Tablet 2 04/22/20 22 Active predniSONE (DELTASONE) 10 mg tablet Take 60 mg by mouth daily. 05/10/20 22 Active HYDROcodone-gianni taminophen (NORCO) 5-325 mg tablet Take 1 Tablet by mouth every 6 hours as needed. 05/10/20 22 Active HYDROcodone-gianni taminophen (NORCO) 5-325 mg tabletIndicatio ns:Lumbar strain, sequela,Lumbar pain with radiation down right leg Take 1 Tablet by mouth every 4 hours as needed for Pain, Moderate. Max Daily Amount: 6 Tablets 20 Tablet 05/13/20 22 Active methocarbamoL (ROBAXIN) 500 mg tabletIndicatio ns:Lumbar strain, sequela,Lumbar pain with radiation down right leg TAKE 2 TABLETS BY MOUTH THREE TIMES DAILY NEEDED FOR SPASM 90 Tablet 2 07/21/20 22 Active ibuprofen (MOTRIN) 800 mg tabletIndicatio ns:Lumbar strain, sequela,Lumbar pain with radiation down right leg TAKE 1 TABLET BY MOUTH EVERY 8 HOURS as needed for severe pain 60 Tablet 2 09/24/19 23 Active venlafaxine (EFFEXOR XR) 37.5 mg Extended Release 24 hour capsuleIndicati ons:RICKEY (generalized anxiety disorder),Depre ssion with anxiety take 1 capsule BY MOUTH EVERY DAY 30 Capsule 2 10/04/19 23 Active Active Problems Problem Noted Date Diagnosed Date Family history of hypothyroidism 08/03/2016 Anxiety attack 08/03/2016 ADD (attention deficit disorder) 08/03/2016 Immunizations Immunization Administration Dates Next Due [...] at Not on file Legal Sex Female 1:30 AM HOPPER OPERATOR Gender Identity Not on file Sexual Orientation Not on file Last Filed Vital Signs Vital Sign Reading Time Taken Comments Blood Pressure 125/93 05/13/2022 9:38 AM CDT Pulse 92 05/13/2022 9:38 AM CDT Temperature 36.4 ??C (97.6 ??F) 05/13/2022 9:38 AM CD T Respiratory Rate 18 12/08/2018 2:19 PM CDT Oxygen Saturation 99% 05/13/2022 9:38 AM CDT Inhaled Oxygen Concentration - - Weight 116.7 kg (257 lb 3.2 oz) 05/13/2022 9:38 AM CDT Height 167.6 cm (5' 6 ) 05/13/2022 9:38 AM CDT Body Mass Index 41.51 05/13/2022 9:38 AM CDT Plan of Treatment Health Maintenance Due Date Last Done Comments DTAP/TDAP/TD VACCINES (1 - Tdap) 12/26/2006 HEPATITIS B VACCINES (1 of 3 - 19+ 3-dose series) 12/26/2006 CERVICAL CANCER SCREENING 09/02/2019 09/02/2016 INFLUENZA VACCINE (#1) 2024 11/05/2016 Preventative Visit- Commercial 09/12/2024 10/06/2018, 09/02/2016 HPV VACCINES Aged Out No longer eligi ble based on patient's age to complete this topic PNEUMOCOCCAL VACCINE 0-64 YEARS Aged Out No longer eligible b ased on patient's age to complete this topic Procedures Procedure Name Priority Date/Time Associated Diagnosis Comments CERV/VAG CYTOPATH, THIN PREP W/RFLX HPV Routine 09/02/2016 2:57 PM HOPPER OPERATOR from Last 3 Months or Most Recently Relevant to Health Maintenance Results * CERV/VAG CYTOPATH, THIN PREP W/RFLX HPV (09/02/2016 2:57 PM HOPPER OPERATOR) CLINICAL INFORMATION SEE COMMENT 09/07/2016 4:06 PM HOPPER OPERATOR [facility] Comment:Information not prov ided LAST MENSTRUAL PERIOD [id number]/07/2016 4:06 PM HOPPER OPERATOR [facility] PREV PAP: SEE COMMENT 09/07/2016 4:06 PM HOPPER OPERATOR [facility] Comment:INFORMATION NOT PROV IDED PREV BX: SEE COMMENT 09/07/2016 4:06 PM HOPPER OPERATOR [facility] Comment:INFORMATION NOT PROV IDED SOURCE Endocervix 09/07/2016 4:06 PM HOPPER OPERATOR [facility] ADEQUACY: SEE COMMENT 09/07/2016 4:06 PM HOPPER OPERATOR [facility] Comment: Satisfactory for evaluation. Endocervical/transformation zone component present. PAP INTERP SEE COMMENT 09/07/2016 4:06 PM HOPPER OPERATOR [facility] Comment:Negative for intraep ithelial lesion or malignancy. PUBLIC RELATIONS ACCOUNT EXECUTIVE: SEE COMMENT 2015 4:06 PM HOPPER OPERATOR [facility] Comment: BAB, CT(ASCP) CT screening location: [place] [address] [place] [address] Genital SWAB OF ENDOCERVIX / Unknown Collection / Unknown 09/02/2016 2:57 PM HOPPER OPERATOR 09/07/2016 6:49 AM HOPPER OPERATOR Narrative [facility] - 09/07/2016 4:06 PM HOPPER OPERATOR Performing Organization Information: ?Site ID: [id number] ?Name: [facility] ?Address: Counts include [address] at the [facility] [place] [address] ?Director: Jeovanny Wilson MD Paola Rogers LICENSED MORTGAGE LOAN OFFICER PATHOLOGY/CYTOLOGY ORDERABLES Final Result [facility] from Last 3 Months or Most Recently Relevant to Health Maintenance [place] [address] [place] [phone] [address] [place] Care Teams Lead Business Systems Analyst Relationship Specialty Start Date End Date Magda Lares DO [address] [place] [address] PCP - General Family Practice 09/03/16
== END 2024-10-12 08:40 | disposition home or self-care (01) | DRG 788 ==
PROVIDERS: Admitting Provider Family Medicine; PCP Family Medicine; Visit Provider Family Medicine
PROC: 10D00Z1 Extraction of Products of Conception, Low, Open Approach (ICD-10-PCS; CPT 59514; principal; 2024-10-10 07:00)
DX: O34.211 Maternal care for low transverse scar from previous cesarean delivery (principal); N85.8 Other specified noninflammatory disorders of uterus; O99.344 Other mental disorders complicating childbirth; Z3A.39 39 weeks gestation of pregnancy; Z37.0 Single live birth
CPT/HCPCS: 36415; 59025; 59409; 85025; 85027; 86850; 86900; 96374; 96376; 99211; J0690; J1200; J1885; J2274; J2405; J2590; J2765; J3010; J7030; J7121

== ENCOUNTER → 2024-10-15 10:56 | Outpatient (BNVA) | payer MEDICAID, SELFPAY | PROVIDERS: PCP Family Medicine; Visit Provider Family Medicine | DX: N39.0 Urinary tract infection, site not specified (principal) | CPT/HCPCS: 81000; 87086 ==

== ENCOUNTER → 2025-02-18 11:43 | Outpatient (BNVA) | payer OTHER, MEDICAID, SELFPAY | PROVIDERS: PCP Family Medicine; Visit Provider Emergency Medicine | DX: J02.9 Acute pharyngitis, unspecified (principal) | CPT/HCPCS: 87071; 87880 ==

== ENCOUNTER → 2025-03-04 15:14 | Outpatient (BNVA) | payer OTHER, MEDICAID, SELFPAY | PROVIDERS: PCP Family Medicine; Visit Provider Nurse Practitioner Women's Health | DX: Z30.9 Encounter for contraceptive management, unspecified (principal) | CPT/HCPCS: 81025 ==

== ENCOUNTER → 2025-03-05 19:33 | Outpatient (BNVA) | payer OTHER, MEDICAID, SELFPAY | PROVIDERS: PCP Family Medicine; Visit Provider Nurse Practitioner Women's Health | DX: Z01.419 Encounter for gynecological examination (general) (routine) without abnormal findings (principal); L65.9 Nonscarring hair loss, unspecified | CPT/HCPCS: 36415 ==

== ENCOUNTER → 2025-03-06 05:23 | Outpatient (BNVA) | payer OTHER, MEDICAID, SELFPAY | PROVIDERS: PCP Family Medicine; Visit Provider Nurse Practitioner Women's Health | DX: Z01.419 Encounter for gynecological examination (general) (routine) without abnormal findings (principal); L65.9 Nonscarring hair loss, unspecified | CPT/HCPCS: 80053; 84443 ==